=== PATIENT | male | born 1940 | race Caucasian/White ===

== ENCOUNTER 2017-03-06 14:33 | Emergency (ER) | payer MEDICARE, OTHER ==
[2017-03-06] MEDS ORDERED: SODIUM CHLORIDE 0.9% 1,000 ML IV STA ×2 (14:47→16:06)
--- NOTE | 2017-03-06 14:49 | ED ---
General Adult HPI - General Chief complaint: Fall Stated complaint: Syncope Time Seen by Provider: 03/06/17 14:47 Source: EMS, RN notes reviewed, old records reviewed Mode of arrival: EMS Limitations: no limitations - History of Present Illness Initial comments: This is a 69-year-old male to the ER for evaluation today. This patient comes in for evaluation regarding syncopal event. Patient has significant medical history of heart disease, multiple surgeries. Patient states he was at religious today came home had a bowel movement then became very sweaty lightheaded dizzy or dizzy or pass out. She did had a witnessed pass out and collapsed, he did hit his head. Patient states he became very diaphoretic. Denies headache chest pain shortness of breath or abdominal pain. No nausea vomiting or diarrhea as of recent. No fevers. Patient this time denies any complaints - Related Data Home Medications Medication Instructions Recorded Confirmed Acetaminophen/Diphenhydramine 2 tab PO HS 01/27/15 03/06/17 [Tylenol PM 500-25mg] Aspirin 325 mg PO DAILY 01/27/15 03/06/17 Docusate [Colace] 200 mg PO BID 01/27/15 03/06/17 Insulin Aspart [NovoLOG Flexpen] 4 units SQ TID-W/MEALS 01/27/15 03/06/17 Lansoprazole [Prevacid] 30 mg PO BID 01/27/15 03/06/17 Insulin Aspart [NovoLOG Flexpen] See Protocol SQ AC-TID 02/08/17 03/06/17 amLODIPine [Norvasc] 2.5 mg PO DAILY 02/08/17 03/06/17 Atorvastatin [Lipitor] 40 mg PO DAILY 03/06/17 03/06/17 Insulin Glargine,Hum.rec.anlog 25 unit SQ HS 03/06/17 03/06/17 [Lantus Solostar] Lisinopril [Prinivil] 5 mg PO DAILY 03/06/17 03/06/17 predniSONE 5 mg PO DAILY 03/06/17 03/06/17 Previous Rx's Medication Instructions Recorded Ciprofloxacin HCl [Cipro] 500 mg PO Q12HR #20 tablet 03/06/17 Allergies Allergy/AdvReac Type Severity Reaction Status Date / Time clopidogrel bisulfate Allergy Severe headache Verified 03/06/17 15:21 [From Plavix] absorbant pads Allergy Rash/Hives Uncoded 02/08/17 09:48 Review of Systems ROS Statement: Those systems with pertinent positive or pertinent negative responses have been documented in the HPI. ROS Other: All systems not noted in ROS Statement are negative. 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 Last Myocardial Infarction Date:: 1998 History of Any Multi-Drug Resistant Organisms: MRSA Date of last positivie culture/infection: >1 year(not sure where dx or exact date) MDRO Source:: urine/blood Past Surgical History: Appendectomy, Coronary Bypass/CABG, Heart Catheterization , Hernia Repair, Orthopedic Surgery, Prostate Surgery Additional Past Surgical History / Comment(s): 4 vessel CABG 1999, surgery for varicose veins left leg, cystectomy-urostomy, romulo cataracts with lens implants, rhinoplasty, rt knee arthrscopies, rt shoulder rotator cuff, mult nephrostomy tubes, colonoscopy with benign polypectomy Past Anesthesia/Blood Transfusion Reactions: No Reported Reaction Past Psychological History: Anxiety Smoking Status: Former smoker Past Alcohol Use History: None Reported Past Drug Use History: None Reported - Past Family History Mother Family Medical History: Myocardial Infarction (SD) Additional Family Medical History / Comment(s): Mother of a SD at the age of 86yrs. Father Family Medical History: Cancer Additional Family Medical History / Comment(s): Father had lung cancer and . He was a smoker. Sister(s) Family Medical History: Cancer General Exam Limitations: no limitations Course Vital Signs 03/06/17 03/06/17 03/06/17 14:34 16:15 18:03 Temperature 96.9 F L Pulse Rate 76 70 85 Respiratory 16 16 16 Rate Blood Pressure 131/70 138/70 121/67 O2 Sat by Pulse 97 98 97 Oximetry 03/06/17 19:50 Temperature 98.2 F Pulse Rate 78 Respiratory 18 Rate Blood Pressure 128/75 O2 Sat by Pulse 98 Oximetry - Reevaluation(s) Reevaluation #1: Patient has no recurrent chest pain headache shortness of breath or abdominal pain here in the emergency room EKG Findings - EKG Comments: EKG Findings:: EKG shows sinus rhythm rate of 77, FL 138, QRS 112, QTC 482 Medical Decision Making - Medical Decision Making 69 male the ER. Pharynx syncopal event mild dehydration positive UTI. No significant cause found for patient syncopal or near syncopal event. Patient states he feels fine at this time with no headache chest pain shortness of breath, patient can be discharged home - Lab Data Result diagrams: 03/06/17 14:45 03/06/17 14:45 Lab Results 03/06/17 03/06/17 03/06/17 Range/Units 14:45 14:45 14:45 WBC 6.7 (3.8-10.6) k/uL RBC 5.00 (4.30-5.90) m/uL Hgb 14.8 (13.0-17.5) gm/dL Hct 47.0 (39.0-53.0) % MCV 94.0 (80.0-100.0) fL MCH 29.6 (25.0-35.0) pg MCHC 31.5 (31.0-37.0) g/dL RDW 14.5 (11.5-15.5) % Plt Count 229 (150-450) k/uL Neutrophils % 77 % Lymphocytes % 14 % Monocytes % 6 % Eosinophils % 2 % Basophils % 0 % Neutrophils # 5.2 (1.3-7.7) k/uL Lymphocytes # 0.9 L (1.0-4.8) k/uL Monocytes # 0.4 (0-1.0) k/uL Eosinophils # 0.1 (0-0.7) k/uL Basophils # 0.0 (0-0.2) k/uL PT (9.0-12.0) sec INR (<1.2) APTT (22.0-30.0) sec D-Dimer (<0.60) mg/L FEU Sodium 141 (137-145) mmol/L Potassium 4.6 (3.5-5.1) mmol/L Chloride 105 (98-107) mmol/L Carbon Dioxide 25 (22-30) mmol/L Anion Gap 11 mmol/L BUN 18 (9-20) mg/dL Creatinine 1.20 (0.66-1.25) mg/dL Est GFR (MDRD) Af Amer >60 (>60 ml/min/1.73 sqM) Est GFR (MDRD) Non-Af 59 (>60 ml/min/1.73 sqM) Glucose 122 H (74-99) mg/dL Plasma Lactic Acid Lang (0.7-2.0) mmol/L Calcium 9.4 (8.4-10.2) mg/dL Phosphorus 3.9 (2.5-4.5) mg/dL Magnesium 1.4 L (1.6-2.3) mg/dL Total Bilirubin 0.5 (0.2-1.3) mg/dL AST 23 (17-59) U/L ALT 27 (21-72) U/L Alkaline Phosphatase 76 (38-126) U/L Total Creatine Kinase 95 (55-170) U/L CK-MB (CK-2) 1.1 (0.0-2.4) ng/mL CK-MB (CK-2) Rel Index 1.2 Troponin I <0.012 (0.000-0.034) ng/mL Total Protein 6.7 (6.3-8.2) g/dL Albumin 3.6 (3.5-5.0) g/dL Urine Color Urine Appearance (Clear) Urine pH (5.0-8.0) Ur Specific [place] (1.001-1.035) Urine Protein (Negative) Urine Glucose (UA) (Negative) Urine Ketones (Negative) Urine Blood (Negative) Urine Nitrite (Negative) Urine Bilirubin (Negative) Urine Urobilinogen (<2.0) mg/dL Ur Leukocyte Esterase (Negative) Urine RBC (0-5) /hpf Urine WBC (0-5) /hpf Urine WBC Clumps (None) /hpf Ur Squamous Epith Cells (0-4) /hpf Urine Bacteria (None) /hpf Hyaline Casts (0-2) /lpf Urine Mucus (None) /hpf 03/06/17 03/06/17 03/06/17 Range/Units 14:45 14:45 15:05 WBC (3.8-10.6) k/uL RBC (4.30-5.90) m/uL Hgb (13.0-17.5) gm/dL Hct (39.0-53.0) % MCV (80.0-100.0) fL MCH (25.0-35.0) pg MCHC (31.0-37.0) g/dL RDW (11.5-15.5) % Plt Count (150-450) k/uL Neutrophils % % Lymphocytes % % Monocytes % % Eosinophils % % Basophils % % Neutrophils # (1.3-7.7) k/uL Lymphocytes # (1.0-4.8) k/uL Monocytes # (0-1.0) k/uL Eosinophils # (0-0.7) k/uL Basophils # (0-0.2) k/uL PT 11.6 (9.0-12.0) sec INR 1.2 H (<1.2) APTT 22.0 (22.0-30.0) sec D-Dimer 7.60 H (<0.60) mg/L FEU Sodium (137-145) mmol/L Potassium (3.5-5.1) mmol/L Chloride (98-107) mmol/L Carbon Dioxide (22-30) mmol/L Anion Gap mmol/L BUN (9-20) mg/dL Creatinine (0.66-1.25) mg/dL Est GFR (MDRD) Af Amer (>60 ml/min/1.73 sqM) Est GFR (MDRD) Non-Af (>60 ml/min/1.73 sqM) Glucose (74-99) mg/dL Plasma Lactic Acid Lang 1.0 (0.7-2.0) mmol/L Calcium (8.4-10.2) mg/dL Phosphorus (2.5-4.5) mg/dL Magnesium (1.6-2.3) mg/dL Total Bilirubin (0.2-1.3) mg/dL AST (17-59) U/L ALT (21-72) U/L Alkaline Phosphatase (38-126) U/L Total Creatine Kinase (55-170) U/L CK-MB (CK-2) (0.0-2.4) ng/mL CK-MB (CK-2) Rel Index Troponin I (0.000-0.034) ng/mL Total Protein (6.3-8.2) g/dL Albumin (3.5-5.0) g/dL Urine Color Yellow Urine Appearance Turbid (Clear) Urine pH 6.0 (5.0-8.0) Ur Specific [place] 1.013 (1.001-1.035) Urine Protein 2+ H (Negative) Urine Glucose (UA) Negative (Negative) Urine Ketones Negative (Negative) Urine Blood Small H (Negative) Urine Nitrite Negative (Negative) Urine Bilirubin Negative (Negative) Urine Urobilinogen <2.0 (<2.0) mg/dL Ur Leukocyte Esterase Large H (Negative) Urine RBC 4 (0-5) /hpf Urine WBC >182 H (0-5) /hpf Urine WBC Clumps Many H (None) /hpf Ur Squamous Epith Cells 1 (0-4) /hpf Urine Bacteria Few H (None) /hpf Hyaline Casts 25 H (0-2) /lpf Urine Mucus Rare H (None) /hpf - Radiology Data Radiology results: report reviewed (CT brain C-spine, CT chest negative for acute disease), image reviewed Disposition Clinical Impression: Syncope, UTI (urinary tract infection) Disposition: HOME SELF-CARE Condition: Good Instructions: Urinary Tract Infection in Men (ED), Syncope (ED) Prescriptions: Ciprofloxacin HCl [Cipro] 500 mg PO Q12HR #20 tablet Referrals: Miguel Vazquez MD [Primary Care Provider] - 1-2 days
[2017-03-06 15:04] LABS: Basophils % (A) 0 %; Eosinophils # (A) 0.1 k/uL (0-0.7); Eosinophils % (A) 2 %; HGB 14.8 gm/dL (13.0-17.5); Lymphocytes # (A) 0.9 k/uL (1.0-4.8); Lymphocytes % (A) 14 %; MCH 29.6 pg (25.0-35.0); MCHC 31.5 g/dL (31.0-37.0); Mean Platelet Volume 7.2; Monocytes # (A) 0.4 k/uL (0-1.0); Monocytes % (A) 6 %; Neutrophils # (A) 5.2 k/uL (1.3-7.7); Neutrophils % (A) 77 %; Platelet Count 229 k/uL (150-450); RDW 14.5 % (11.5-15.5); WBC 6.7 k/uL (3.8-10.6)
[2017-03-06 15:14] LABS: ALT 27 U/L (21-72); AST 23 U/L (17-59); Albumin 3.6 g/dL (3.5-5.0); Alkaline Phosphatase 76 U/L (38-126); Anion Gap 11 mmol/L; Blood Urea Nitrogen 18 mg/dL (9-20); Calcium 9.4 mg/dL (8.4-10.2); Carbon Dioxide 25 mmol/L (22-30); Chloride 105 mmol/L (98-107); Glucose 122 mg/dL (74-99); Magnesium 1.4 mg/dL (1.6-2.3); Phosphorus 3.9 mg/dL (2.5-4.5); Potassium 4.6 mmol/L (3.5-5.1); Sodium 141 mmol/L (137-145); Total Bilirubin 0.5 mg/dL (0.2-1.3); Total Protein 6.7 g/dL (6.3-8.2)
[2017-03-06 15:31] LABS: Creatine Kinase 95 U/L (55-170)
[2017-03-06 15:35] LABS: Appearance,Urine Turbid (Clear); Bacteria,Urine Few /hpf; Bilirubin,Urine Negative (Negative); Blood,Urine Small (Negative); Color,Urine Yellow; Glucose,Urine (UA) Negative (Negative); Hyaline Casts,Urine 25 /lpf (0-2); Ketones,Urine Negative (Negative); Leukocyte Esterase,Urine Large (Negative); Mucus,Urine Rare /hpf; Nitrite,Urine Negative (Negative); Protein,Urine 2+ (Negative); RBC,Urine 4 /hpf (0-5); Specific Gravity,Urine 1.013 (1.001-1.035); Squamous Epithelial Cell,Urine 1 /hpf (0-4); Urobilinogen,Urine <2.0 mg/dL (<2.0); WBC,Urine >182 /hpf (0-5)
[2017-03-06 15:43] LABS: Creatine Kinase MB 1.1 ng/mL (0.0-2.4); Troponin I <0.012 ng/mL (0.000-0.034)
[2017-03-06 15:57] LABS: D-Dimer 7.6 mg/L FEU (<0.60); INR 1.2 (<1.2); Prothrombin Time 11.6 sec (9.0-12.0)
--- NOTE | 2017-03-06 15:57 | CT ---
EXAMINATION TYPE: CT brain cspine wo con DATE OF EXAM: 03/06/2017 COMPARISON: NONE HISTORY: Head and neck pain CT DLP: 1860 mGycm Automated exposure control for dose reduction was used. TECHNIQUE: CT scan of the head and cervical spine are performed without contrast. FINDINGS: There is no acute intracranial hemorrhage, mass effect, or midline shift identified. The ventricles and sulci are within normal limits in size. The globes are intact and the visualized sin uses are clear. Cervical spine is visualized in its entirety from C1 through upper thoracic levels and demonstrates s atisfactory alignment without evidence of acute fracture or dislocation. Prevertebral soft tissue ap pears within normal limits. There are chronic white matter ischemic changes and mild cortical atrophy . Mild to moderate degenerative changes are identified in the cervical spine with multiple levels dem onstrating endplate spurring which effaces the ventral thecal sac. There is also left greater than ri ght facet hypertrophy which causes mild foraminal narrowing at several levels. The C1-C2 articulation is unremarkable. There is an opacity in the right lung apex which is incompletely visualized on background of diffuse emphysema. No comparison is identified which better evaluates this focus. IMPRESSION: 1. There is no acute fracture or dislocation evident in the cervical spine. 2. No acute intracranial hemorrhage, mass effect, or midline shift is seen. 3. Opacity is identified in the posterior right lung apex which is not completely visualized. Dedicat ed noncontrast chest CT is recommended.
[2017-03-06] MEDS ORDERED: RX INFO: IV CONTRAST WAS GIVEN 1 EACH MISC MISCELLANE PRN (16:06)
[2017-03-06] MEDS ORDERED: AMPICILLIN-SULBACTAM 3 GM in SODIUM CHLORIDE 0.9% 100 ML IVPB STA (16:15)
[2017-03-06] MEDS ORDERED: MAGNESIUM OXIDE 400 MG TAB PO STA (16:31)
--- NOTE | 2017-03-06 16:51 | CT ---
EXAMINATION TYPE: CT angio chest DATE OF EXAM: 03/06/2017 4:37 PM COMPARISON: NONE HISTORY: Syncope. CT DLP: 435.5 mGycm Automated exposure control for dose reduction was used. CONTRAST: CTA scan of the thorax is performed with IV Contrast, patient injected with 80 mL of Visipaque 320, p ulmonary embolism protocol. . FINDINGS: Diffuse emphysematous changes are noted throughout all lung [place]. There are large bulla noted at gene th lung bases as well as the right lung apices. There is a well organized heterogeneous opacification identified in the right upper lobe which measures 2.7 x 0.1 x 2.4 cm. Additional suspicious smaller lesions are identified more inferiorly however these abut the pleura and could be foci of atelectasis . Fluid is there is also a nodule identified in the periphery of the lingula this is best seen on axi al image 9175. This focus measures 4.0 x 5.9 cm. No filling defect is identified which would suggest a pulmonary embolism. There is no enlarged paratr acheal lymph node identified on axial image 35 on 75 measures 2.9 x 1.7 cm. Several other smaller med iastinal lymph nodes are also identified. There is no endobronchial lesion. The central airways appear patent. No osteolytic or osteoblastic le sions are seen. IMPRESSION: 1. No findings to suggest a pulmonary embolism. 2. Multiple opacities/masses are identified bilaterally on a background of diffuse emphysema. Neoplas m is suspected however atelectasis is difficult to fully exclude especially given the peripheral loca tion of these foci. Recommend comparison with prior outside studies. A PET scan may be of benefit if warranted.
--- NOTE | 2017-03-06 17:13 | US ---
EXAMINATION TYPE: US venous doppler duplex LE DATE OF EXAM: 03/06/2017 4:57 PM COMPARISON: NONE CLINICAL HISTORY: Pain. EC patient with elevated D Dimer; in for syncope; left Saphenous Veins stripp ed per patient SIDE PERFORMED: Bilateral TECHNIQUE: The lower extremity deep venous system is examined utilizing real time linear array sonog [place] with graded compression, doppler sonography and color-flow sonography. VESSELS IMAGED: Common Femoral Vein Deep Femoral Vein Greater Saphenous Vein * Femoral Vein Popliteal Vein Small Saphenous Vein * Proximal Calf Veins (* superficial vessels) Right Leg: Wall echoes are noted at upper Femoral Vein and Deep Femoral Vein Valves, but color flow patency is documented. Rt leg is otherwise negative for DVT. Left Leg: Negative for DVT. Lymph node is noted left groin = 1.7 x 0.9 x 0.6cm IMPRESSION: Hyperechoic foci are noted in the valves of the femoral vein on the right-these are felt to be thrombi. These are nonobstructing and questionably flow limiting.
[2017-03-06] MEDS: MAGNESIUM SULFATE-D5W PMX 1 GM in DEXTROSE/WATER 1 100ML.BAG IVPB SCH ×2 (17:48→18:41)
[2017-03-06 19:52] VITALS: BP 128/75; PULSE 78; RESP 18; TEMP 98.2
== END 2017-03-06 19:49 | disposition home or self-care (01) ==
LOC: EC 14:33
DX: R55 Syncope and collapse (principal); N39.0 Urinary tract infection, site not specified; R42 Dizziness and giddiness; I25.119 Atherosclerotic heart disease of native coronary artery with unspecified angina pectoris; E11.9 Type 2 diabetes mellitus without complications; K21.9 Gastro-esophageal reflux disease without esophagitis; I25.2 Old myocardial infarction; M19.90 Unspecified osteoarthritis, unspecified site; F41.9 Anxiety disorder, unspecified; Z86.14 Personal history of Methicillin resistant Staphylococcus aureus infection; Z85.51 Personal history of malignant neoplasm of bladder; Z87.891 Personal history of nicotine dependence; Z79.4 Long term (current) use of insulin; Z79.82 Long term (current) use of aspirin; Z79.52 Long term (current) use of systemic steroids; Z79.899 Other long term (current) drug therapy; Z91.048 Other nonmedicinal substance allergy status; Z88.8 Allergy status to other drugs, medicaments and biological substances
CPT/HCPCS: 96375; 96361 ×2; 96365 ×2; 99285 ×2; 96367; 36415; 93005; 85379; 80053; 82550; 82553; 83605; 83735; 84100; 84484; 85025; 85610; 85730; 81001; 87086; 87077; 87186; 93970; 72125; 70450; 71275; Q9967; J3475; J0295

== ENCOUNTER 2017-10-26 08:41 | Day surgery (SDC) | payer MEDICARE, OTHER ==
[2017-10-26 09:33] VITALS: BP 101/59; PULSE 86; RESP 18; TEMP 97.7
[2017-10-26 09:33] LABS: INR 1.2 (<1.2); Prothrombin Time 11.6 sec (9.0-12.0)
[2017-10-26 09:36] LABS: Mean Platelet Volume 7.8; Platelet Count 254 k/uL (150-450)
--- NOTE | 2017-10-26 10:34 | CT ---
EXAMINATION TYPE: CT discontinued procedure DATE OF EXAM: 10/26/2017 COMPARISON: Nuclear medicine PET/CT 10/09/2017 HISTORY: Discontinued lung biopsy. CT DLP: 306 mGycm Automated exposure control for dose reduction was used. Limited helical scanning performed from the c hest. FINDINGS: Following discussion of risks and benefits of the procedure, the patient elected to defer biopsy. IMPRESSION: PATIENT HAS ELECTED TO DEFER BIOPSY THIS TIME.
== END 2017-10-26 10:25 | disposition home or self-care (01) ==
LOC: RADPROMAIN 08:41
PROVIDERS: ATTEND Thoracic Surgery (Cardiothoracic Vascular Surgery)
DX: Z53.9 Procedure and treatment not carried out, unspecified reason (principal); R91.8 Other nonspecific abnormal finding of lung field; Z88.8 Allergy status to other drugs, medicaments and biological substances
CPT/HCPCS: 36415; 76380; 82947; 85049; 85610

== ENCOUNTER 2017-11-10 05:35 | Day surgery (SDC) | payer MEDICARE, OTHER ==
[2017-11-07 10:06] VITALS: BMI 30.4
[~2017-11-10 05:35] MED LIST: ceFAZolin IN SWFI 2 GM/20 ML SYRINGE IVP ONE
[2017-11-10] MEDS ORDERED: ONDANSETRON 4 MG/2 ML VIAL IVP ONE (05:48)
[2017-11-10] MEDS ORDERED: DEXAMETHASONE SOD PHOSPHATE 10 MG/ML 1 ML VIAL IV ONE (05:48)
[2017-11-10] MEDS ORDERED: LACTATED RINGERS 1,000 ML IV SCH (05:48)
[2017-11-10] MEDS ORDERED: LIDOCAINE 1% 20 ML VIAL (10MG/ML) FOR IV START INTRADERMA ONE (06:23)
[2017-11-10 06:53] LABS: Glucose,Whole Blood 130 mg/dL (75-99)
[2017-11-10 06:58] LABS: INR 1.3 (<1.2); Prothrombin Time 12.4 sec (9.0-12.0)
[2017-11-10 07:12] LABS: Potassium 4.7 mmol/L (3.5-5.1)
[2017-11-10] MEDS ORDERED: MIDAZOLAM 2 MG/2 ML VIAL ONE (07:34)
[2017-11-10] MEDS ORDERED: LIDOCAINE 1% INJ 10MG/ML (20 ML MDV) ONE (07:34)
[2017-11-10] MEDS ORDERED: PROPOFOL 10 MG/ML 20 ML VIAL IV ONE (07:34)
[2017-11-10] MEDS ORDERED: SUCCINYLCHOLINE CHLORIDE VIAL 200 MG/10 ML VIAL IV ONE (07:34)
[2017-11-10] MEDS ORDERED: fentaNYL (PF) 50 MCG/ML 2 ML AMP ONE (07:34)
[2017-11-10] MEDS ORDERED: PHENYLEPHRINE-0.9% NACL SYG 1 MG/10 ML SYRINGE ONE (07:34)
[2017-11-10] MEDS: HYDROmorphone 0.5 MG/0.5 ML SYRINGE IVP PRN ×2 (09:10→09:15)
[2017-11-10] MEDS ORDERED: HYDROcodone/APAP 5-325MG 1 EACH TAB PO PRN ×2 (09:13)
--- NOTE | 2017-11-10 09:15 | P.OP ---
Date of Procedure: 11/10/17 Preoperative Diagnosis: Metastatic carcinoma, unknown primary Postoperative Diagnosis: Same Procedure(s) Performed: Mediastinum anoscopy with lymph node biopsy Anesthesia: EDAA Surgeon: Mert Ignacio Estimated Blood Loss (ml): 3 IV fluids (ml): 800 Urine output (ml): 270 Pathology: other (Biopsy of right paratracheal lymph node sent for frozen section and permanent section) Condition: stable Disposition: PACU Indications for Procedure: 77-year-old male with history of aggressive bladder cancer status post nephrectomy with ileal conduit. Presents at this time with shoulder pain and is noted to have multiple pulmonary masses, mediastinal adenopathy, evidence of only metastasis including metastasis to the scapula. He also has evidence of adrenal metastasis and possible liver metastasis. All of this to his demonstrated on both CT and PET scanning. Patient was referred for needle biopsy for tissue diagnosis as well as for radiation and medical oncology. Unfortunately a needle biopsy was not performed. The rib patient re-presented to my office. It was decided to proceed with mediastinoscopy to obtain tissue diagnosis. Operative Findings: There was an area of enlarged right paratracheal lymph nodes between the sondra and the innominate artery. 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 Description of Procedure: Patient was brought to the operating room, placed supine on the operating table , anesthetized and intubated. Table was turned and the patient appropriately positioned for mediastinoscopy. The anterior neck and chest were sterilely prepped and draped. Transverse incision was made at the base of the neck across the midline for a distance of about 1 cm. This was carried down through skin and subcutaneous tissue to the strap muscles. A small vein was ligated with 3-0 silk. Dissection was carried between the strap muscles to the pretracheal plane beneath the thyroid isthmus. The pretracheal plane was developed into the mediastinum using gentle blunt finger dissection. Mediastinoscope was introduced and the dissection carried down to the level of the sondra. The right paratracheal region was dissected and enlarged soft lymph nodes were encountered. Multiple biopsies were obtained. A portion was sent for frozen section. The remainder was sent for permanent section once we assured the diagnosis of malignancy on frozen section. The area was packed in good hemostasis was verified. Strap muscles were reapproximated with interrupted [id number] of 3-0 Vicryl. The subcutaneous tissue was closed with running 3-0 Vicryl. Subcuticular layer was closed with running 3-0 Vicryl. Skin was dressed with skin glue. The patient was awakened and transferred to recovery room in stable condition.
[2017-11-10 09:18] VITALS: RESP 16; TEMP 97.1
[2017-11-10 10:47] VITALS: BP 121/82; PULSE 95
== END 2017-11-10 11:13 | disposition home or self-care (01) ==
LOC: OR 05:35
PROVIDERS: ATTEND Thoracic Surgery (Cardiothoracic Vascular Surgery)
DX: C77.1 Secondary and unspecified malignant neoplasm of intrathoracic lymph nodes (principal); I25.10 Atherosclerotic heart disease of native coronary artery without angina pectoris; I10 Essential (primary) hypertension; Z87.891 Personal history of nicotine dependence; Z95.1 Presence of aortocoronary bypass graft; Z85.51 Personal history of malignant neoplasm of bladder; Z80.1 Family history of malignant neoplasm of trachea, bronchus and lung; Z86.73 Personal history of transient ischemic attack (TIA), and cerebral infarction without residual deficits; E78.5 Hyperlipidemia, unspecified; F41.9 Anxiety disorder, unspecified; K21.9 Gastro-esophageal reflux disease without esophagitis; Z79.4 Long term (current) use of insulin; Z79.891 Long term (current) use of opiate analgesic; Z79.899 Other long term (current) drug therapy; Z88.8 Allergy status to other drugs, medicaments and biological substances
CPT/HCPCS: 80051; 85610; 88305; 88331

== ENCOUNTER 2017-12-19 11:44 | Emergency (ER) | payer MEDICARE, OTHER ==
[2017-12-19 12:09] VITALS: RESP 18
[2017-12-19] MEDS ORDERED: SODIUM CHLORIDE 0.9% 1,000 ML IV STA (12:33)
--- NOTE | 2017-12-19 12:43 | ED ---
General Adult HPI - General Chief complaint: Abdominal Pain Stated complaint: Abd.pain/constipation Time Seen by Provider: 12/19/17 12:15 Source: patient, RN notes reviewed Mode of arrival: wheelchair Limitations: no limitations - History of Present Illness Initial comments: Patient 77-year-old male presented to the emergency room today with chief complaint abdominal pain over the last 3 or 4 days per patient does admit that over the weekend he was having symptoms of nausea vomiting. States has not had a bowel movement appears worried that he is constipated. He does admit that he has cancer and is currently being treated with radiation treatments. Patient states he was given radiation treatment today with a possible to emergency room visit an elevated heart rate. She does not have a bowel movement over the last 3 days. Patient states that has passed gas. Patient is to cramping type abdominal pain that comes and goes in the lower parts of the abdomen. Patient does admit that he is currently on antibiotic for a urinary tract infection. He does admit that he had a history of bladder cancer had bladder removed and does have a urinary bag. Patient denies any other complaints or symptoms currently. Patient denies any recent fever, chills, back pain, numbness or tingling, headaches or visual changes, or any other complaints. - Related Data Home Medications Medication Instructions Recorded Confirmed Acetaminophen/Diphenhydramine 2 tab PO HS 01/27/15 12/19/17 [Tylenol PM 500-25mg] Aspirin 325 mg PO DAILY 01/27/15 12/19/17 Docusate [Colace] 200 mg PO BID 01/27/15 12/19/17 Insulin Aspart [NovoLOG Flexpen] 4 units SQ TID-W/MEALS 01/27/15 12/19/17 Lansoprazole [Prevacid] 30 mg PO BID 01/27/15 12/19/17 amLODIPine [Norvasc] 2.5 mg PO DAILY 02/08/17 12/19/17 Atorvastatin [Lipitor] 40 mg PO HS 03/06/17 12/19/17 Insulin Glargine,Hum.rec.anlog 25 unit SQ HS 03/06/17 12/19/17 [Lantus Solostar] Lisinopril [Prinivil] 5 mg PO DAILY 03/06/17 12/19/17 ALPRAZolam [Xanax] 1 - 2 mg PO BID PRN 10/14/17 12/19/17 Polyethylene Glycol 3350 [Miralax] 17 gm PO DAILY 10/14/17 12/19/17 Megestrol Acetate 40 mg PO DAILY 11/07/17 12/19/17 Cephalexin [Keflex] 500 mg PO TID 12/19/17 12/19/17 HYDROcodone/APAP 10-325MG [[place] 1 tab PO Q6H PRN 12/19/17 12/19/17 10-325] Insulin Aspart [NovoLOG See Protocol SQ AC-TID PRN 12/19/17 12/19/17 (formulary)] Ondansetron [Zofran ODT] 8 mg PO Q4H PRN 12/19/17 12/19/17 Previous Rx's Medication Instructions Recorded Ciprofloxacin HCl [Cipro] 500 mg PO Q12HR #20 day 12/19/17 metroNIDAZOLE [Flagyl] 500 mg PO TID #30 tab 12/19/17 Allergies Allergy/AdvReac Type Severity Reaction Status Date / Time clopidogrel bisulfate Allergy Severe headache Verified 12/19/17 12:47 [From Plavix] absorbant pads Allergy Rash/Hives Uncoded 12/19/17 12:09 Review of Systems ROS Statement: Those systems with pertinent positive or pertinent negative responses have been documented in the HPI. ROS Other: All systems not noted in ROS Statement are negative. 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 , IDDM type II, bladder cancer with cystectomy/urostomy, arthritis mainly in knees and back, hiatal hernia, occ hives from environmental allergies, bladder cancer, c-diff 2012, diverticulitis, occasional shortness of breath,recent dx lung cancer Last Myocardial Infarction Date:: 1998 History of Any Multi-Drug Resistant Organisms: C-DIFF, MRSA Date of last positivie culture/infection: >1 year(not sure where dx or exact date) MDRO Source:: urine/blood Past Surgical History: Appendectomy, Coronary Bypass/CABG, Heart Catheterization , Hernia Repair, Orthopedic Surgery, Prostate Surgery Additional Past Surgical History / Comment(s): 4 vessel CABG 1999, surgery for varicose veins left leg, cystectomy-urostomy, romulo cataracts with lens implants, rhinoplasty, rt knee arthroscopies, rt shoulder rotator cuff, mult nephrostomy tubes, colonoscopy with benign polypectomy Past Anesthesia/Blood Transfusion Reactions: No Reported Reaction Past Psychological History: Anxiety Smoking Status: Former smoker - Past Family History Mother Family Medical History: Myocardial Infarction ([place]) Additional Family Medical History / Comment(s): Mother of a [place] at the age of 86yrs. Father Family Medical History: Cancer Additional Family Medical History / Comment(s): Father had lung cancer and . He was a smoker. Sister(s) Family Medical History: Cancer General Exam - General Exam Comments Initial Comments: General: The patient is awake and alert, in no distress, and does not appear acutely ill. Eye: There is normal conjunctiva bilaterally. No signs of icterus. Ears, nose, mouth and throat: There are moist mucous membranes and no oral lesions. Neck: The neck is supple, there is no tenderness or JVD. Cardiovascular: There is a regular rate and rhythm. No murmur, rub or gallop is appreciated. Respiratory: Lungs are clear to auscultation, respirations are non-labored, breath sounds are equal. No wheezes, stridor, rales, or rhonchi. Gastrointestinal: Soft on palpation. Patient is a lower quadrant. No rebound, guarding or CVA tenderness. Musculoskeletal: Normal ROM, no tenderness. Sensation intact. Strength 5/5. Pulses equal bilaterally 2+. Neurological: A&O x 3. CN II-XII intact, There are no obvious motor or sensory deficits. Coordination appears grossly intact. Speech is normal. Skin: Skin is warm and dry and no rashes or lesions are noted. Psychiatric: Cooperative, appropriate mood & affect, normal judgment. Limitations: no limitations Course Vital Signs 12/19/17 12/19/17 12:06 14:24 Temperature 97.9 F 97.6 F Pulse Rate 116 H 108 H Respiratory 18 18 Rate Blood Pressure 120/77 132/85 O2 Sat by Pulse 95 97 Oximetry EKG Findings - EKG Comments: EKG Findings:: EKG performed at 1416: Shows sinus tachycardia 5 bpm. [place] interval is 130. QRS 108 QT/QTC 352/465. No acute ST changes. Medical Decision Making - Medical Decision Making Case discussed in detail with attending physician . Patient reexamined at this time shows no signs of distress resting comfortably. Labs been reviewed. EKG shows sinus tachycardia 105 bpm. No other acute abnormalities. Results were discussed with patient. CT the abdomen and pelvis Shows 1. Correlate for mild sigmoid diverticulosis. 2. Mild hydronephrosis stable since prior study. 3 patient's a pulmonary nodule pleural effusions. 4. Left adrenal nodule. 5. Right pleural effusion. 6. Abdominal aortic aneurysm measuring 4.5 cm as read by radiologist Dr. Aparicio. Options were discussed with patient about admission to the hospital. He states he would rather go home. Patient's urine sample to show 9 white cells. Currently on Keflex. Patient does admit he states feeling much better here in the emergency room. States would rather go home. He will be treated for diverticulitis placed on ciprofloxacin along with Flagyl. He is advised follow-up with his family doctor tomorrow. He is advised return here to the emergency room for any symptoms increase or worsen. - Lab Data Result diagrams: 12/19/17 13:06 12/19/17 13:06 Lab Results 12/19/17 12/19/17 12/19/17 Range/Units 13:06 13:06 13:06 WBC 9.0 (3.8-10.6) k/uL RBC 4.97 (4.30-5.90) m/uL Hgb 15.0 (13.0-17.5) gm/dL Hct 45.4 (39.0-53.0) % MCV 91.4 (80.0-100.0) fL MCH 30.1 (25.0-35.0) pg MCHC 33.0 (31.0-37.0) g/dL RDW 13.9 (11.5-15.5) % Plt Count 274 (150-450) k/uL Neutrophils % 75 % Lymphocytes % 10 % Monocytes % 6 % Eosinophils % 7 % Basophils % 1 % Neutrophils # 6.7 (1.3-7.7) k/uL Lymphocytes # 0.9 L (1.0-4.8) k/uL Monocytes # 0.5 (0-1.0) k/uL Eosinophils # 0.7 (0-0.7) k/uL Basophils # 0.1 (0-0.2) k/uL Sodium 137 (137-145) mmol/L Potassium 5.4 H (3.5-5.1) mmol/L Chloride 107 (98-107) mmol/L Carbon Dioxide 18 L (22-30) mmol/L Anion Gap 12 mmol/L BUN 24 H (9-20) mg/dL Creatinine 1.08 (0.66-1.25) mg/dL Est GFR (CKD-EPI)AfAm 76 (>60 ml/min/1.73 sqM) Est GFR (CKD-EPI)NonAf 65 (>60 ml/min/1.73 sqM) Glucose 127 H (74-99) mg/dL Calcium 10.3 H (8.4-10.2) mg/dL Total Bilirubin 0.9 (0.2-1.3) mg/dL AST 27 (17-59) U/L ALT 17 L (21-72) U/L Alkaline Phosphatase 125 (38-126) U/L Total Creatine Kinase (55-170) U/L CK-MB (CK-2) (0.0-2.4) ng/mL CK-MB (CK-2) Rel Index Troponin I (0.000-0.034) ng/mL Total Protein 8.0 (6.3-8.2) g/dL Albumin 4.1 (3.5-5.0) g/dL Amylase 41 (30-110) U/L Lipase 26 (23-300) U/L Urine Color Yellow Urine Appearance Clear (Clear) Urine pH 6.5 (5.0-8.0) Ur Specific [place] 1.010 (1.001-1.035) Urine Protein 1+ H (Negative) Urine Glucose (UA) Negative (Negative) Urine Ketones Negative (Negative) Urine Blood Negative (Negative) Urine Nitrite Negative (Negative) Urine Bilirubin Negative (Negative) Urine Urobilinogen <2.0 (<2.0) mg/dL Ur Leukocyte Esterase Negative (Negative) Urine RBC 1 (0-5) /hpf Urine WBC 9 H (0-5) /hpf Urine Bacteria Rare H (None) /hpf 12/19/17 Range/Units 13:06 WBC (3.8-10.6) k/uL RBC (4.30-5.90) m/uL Hgb (13.0-17.5) gm/dL Hct (39.0-53.0) % MCV (80.0-100.0) fL MCH (25.0-35.0) pg MCHC (31.0-37.0) g/dL RDW (11.5-15.5) % Plt Count (150-450) k/uL Neutrophils % % Lymphocytes % % Monocytes % % Eosinophils % % Basophils % % Neutrophils # (1.3-7.7) k/uL Lymphocytes # (1.0-4.8) k/uL Monocytes # (0-1.0) k/uL Eosinophils # (0-0.7) k/uL Basophils # (0-0.2) k/uL Sodium (137-145) mmol/L Potassium (3.5-5.1) mmol/L Chloride (98-107) mmol/L Carbon Dioxide (22-30) mmol/L Anion Gap mmol/L BUN (9-20) mg/dL Creatinine (0.66-1.25) mg/dL Est GFR (CKD-EPI)AfAm (>60 ml/min/1.73 sqM) Est GFR (CKD-EPI)NonAf (>60 ml/min/1.73 sqM) Glucose (74-99) mg/dL Calcium (8.4-10.2) mg/dL Total Bilirubin (0.2-1.3) mg/dL AST (17-59) U/L ALT (21-72) U/L Alkaline Phosphatase (38-126) U/L Total Creatine Kinase 38 L (55-170) U/L CK-MB (CK-2) 0.5 (0.0-2.4) ng/mL CK-MB (CK-2) Rel Index 1.3 Troponin I <0.012 (0.000-0.034) ng/mL Total Protein (6.3-8.2) g/dL Albumin (3.5-5.0) g/dL Amylase (30-110) U/L Lipase (23-300) U/L Urine Color Urine Appearance (Clear) Urine pH (5.0-8.0) Ur Specific [place] (1.001-1.035) Urine Protein (Negative) Urine Glucose (UA) (Negative) Urine Ketones (Negative) Urine Blood (Negative) Urine Nitrite (Negative) Urine Bilirubin (Negative) Urine Urobilinogen (<2.0) mg/dL Ur Leukocyte Esterase (Negative) Urine RBC (0-5) /hpf Urine WBC (0-5) /hpf Urine Bacteria (None) /hpf Disposition Clinical Impression: Diverticulitis, UTI (urinary tract infection) Disposition: HOME SELF-CARE Condition: Good Instructions: Diverticulitis (ED) Additional Instructions: Please follow-up the family doctor tomorrow. Please use antibiotic as prescribed and return here to the emergency room if any symptoms increase or worsen Prescriptions: Ciprofloxacin HCl [Cipro] 500 mg PO Q12HR #20 day metroNIDAZOLE [Flagyl] 500 mg PO TID #30 tab Is patient prescribed a controlled substance at d/c from ED?: No Referrals: Miguel Vazquez MD [Primary Care Provider] - 1-2 days Time of Disposition: 15:07
[2017-12-19 13:15] LABS: Basophils # (A) 0.1 k/uL (0-0.2); Basophils % (A) 1 %; Eosinophils # (A) 0.7 k/uL (0-0.7); Eosinophils % (A) 7 %; HCT 45.4 % (39.0-53.0); Lymphocytes # (A) 0.9 k/uL (1.0-4.8); Lymphocytes % (A) 10 %; MCH 30.1 pg (25.0-35.0); MCV 91.4 fL (80.0-100.0); Mean Platelet Volume 6.9; Monocytes # (A) 0.5 k/uL (0-1.0); Monocytes % (A) 6 %; Neutrophils # (A) 6.7 k/uL (1.3-7.7); Neutrophils % (A) 75 %; Platelet Count 274 k/uL (150-450); RBC 4.97 m/uL (4.30-5.90); RDW 13.9 % (11.5-15.5)
[2017-12-19 13:28] LABS: Appearance,Urine Clear (Clear); Bacteria,Urine Rare /hpf; Bilirubin,Urine Negative (Negative); Blood,Urine Negative (Negative); Color,Urine Yellow; Glucose,Urine (UA) Negative (Negative); Ketones,Urine Negative (Negative); Leukocyte Esterase,Urine Negative (Negative); Nitrite,Urine Negative (Negative); PH, Urine 6.5 (5.0-8.0); Protein,Urine 1+ (Negative); RBC,Urine 1 /hpf (0-5); Urobilinogen,Urine <2.0 mg/dL (<2.0); WBC,Urine 9 /hpf (0-5)
[2017-12-19 13:40] LABS: Albumin 4.1 g/dL (3.5-5.0); Calcium 10.3 mg/dL (8.4-10.2); Potassium 5.4 mmol/L (3.5-5.1); Total Bilirubin 0.9 mg/dL (0.2-1.3)
[2017-12-19 13:41] LABS: Creatine Kinase 38 U/L (55-170)
[2017-12-19 13:53] LABS: Creatine Kinase MB 0.5 ng/mL (0.0-2.4); Troponin I <0.012 ng/mL (0.000-0.034)
--- NOTE | 2017-12-19 14:33 | CT ---
EXAMINATION TYPE: CT abdomen pelvis w con DATE OF EXAM: 12/19/2017 COMPARISON: CT abdomen pelvis 07/29/2015 HISTORY: Pain.Receiving radiation therapy for stage 4 lung cancer, both sides. CONTRAST: Contrast used 100 mL/Isovue 300. No oral. FINDINGS: LUNG BASES-: Right-sided pleural effusion measures of 4.2 cm. Multiple pulmonary nodules identified a t both lung bases. The largest the nodule at the left lung base measures 2.2 cm and at the right lung base measures 2.9 cm. Moderately severe emphysematous changes are redemonstrated. LIVER/GB: No calcified gallstones. No space occupying hepatic lesion. Biliary tree is of normal ca liber. PANCREAS: No inflammation. No distinct mass. SPLEEN: No splenic enlargement. No lesion seen. ADRENALS: Left adrenal nodule measures 1.9 cm versus 1.9 cm previously. KIDNEYS/BLADDER: There is mild bilateral hydronephrosis and hydroureter relatively similar as seen p reviously. There are postsurgical changes of cystectomy with a right lower quadrant diverting urostom y. No nephrolithiasis. No distinct renal mass. BOWEL: Mild bowel wall thickening noted proximal sigmoid colon with surrounding strandy attenuation m ay reflect mild diverticulitis. No evidence of perforation or abscess. GENITAL ORGANS: No gross abnormality. LYMPH NODES: No greater than 1cm abdominal or pelvic lymph nodes are appreciated. AORTA: Infrarenal abdominal aortic aneurysm measuring 4.5 cm AP dimension. OSSEOUS STRUCTURES: No significant abnormality is seen. OTHER: No significant additional abnormality is seen. IMPRESSION: 1. Correlate for mild sigmoid diverticulitis. 2. Mild hydronephrosis stable since prior study. 3. Basilar pulmonary nodule pleural effusions. Several of the nodules demonstrate cavitation. 4. Left adrenal nodule. 5. Right pleural effusion. 6 abdominal aortic aneurysm.
[2017-12-19 15:21] VITALS: BP 136/87; PULSE 100; TEMP 97.4
== END 2017-12-19 15:21 | disposition home or self-care (01) ==
LOC: EC 11:44
DX: K57.32 Diverticulitis of large intestine without perforation or abscess without bleeding (principal); N39.0 Urinary tract infection, site not specified; N13.30 Unspecified hydronephrosis; R91.1 Solitary pulmonary nodule; E27.8 Other specified disorders of adrenal gland; J90 Pleural effusion, not elsewhere classified; I71.4 Abdominal aortic aneurysm, without rupture; C34.90 Malignant neoplasm of unspecified part of unspecified bronchus or lung; I25.119 Atherosclerotic heart disease of native coronary artery with unspecified angina pectoris; E11.9 Type 2 diabetes mellitus without complications; K21.9 Gastro-esophageal reflux disease without esophagitis; I25.2 Old myocardial infarction; M19.90 Unspecified osteoarthritis, unspecified site; F41.9 Anxiety disorder, unspecified; Z86.73 Personal history of transient ischemic attack (TIA), and cerebral infarction without residual deficits; Z86.14 Personal history of Methicillin resistant Staphylococcus aureus infection; Z85.51 Personal history of malignant neoplasm of bladder; Z87.891 Personal history of nicotine dependence; Z79.4 Long term (current) use of insulin; Z79.899 Other long term (current) drug therapy; Z88.8 Allergy status to other drugs, medicaments and biological substances; Z95.1 Presence of aortocoronary bypass graft; Z79.82 Long term (current) use of aspirin; Z95.818 Presence of other cardiac implants and grafts; Z91.048 Other nonmedicinal substance allergy status; Z90.49 Acquired absence of other specified parts of digestive tract; Z80.1 Family history of malignant neoplasm of trachea, bronchus and lung
CPT/HCPCS: 99285; 96360; 36415; 93005; 80053; 82150; 82550; 82553; 83690; 84484; 85025; 81001; 87086; 74177; Q9967; 87077; 87186

== ENCOUNTER → 2018-01-25 | Outpatient (CLI) | payer MEDICARE, OTHER ==
--- NOTE | 2018-01-25 16:42 | CT ---
EXAMINATION TYPE: CT chest wo con DATE OF EXAM: 01/25/2018 COMPARISON: 03/06/2017 HISTORY: Lung CA CT DLP: 443.2 mGycm. Automated Exposure Control for Dose Reduction was Utilized. TECHNIQUE: CT scan of the thorax is performed without IV contrast. FINDINGS: LUNGS: The right upper lobe pulmonary mass representing the patient's known primary neoplasm has been displaced anteriorly due to an accumulating moderate right pleural effusion. Numerous new cavitary l esions have developed in the interim as well as noncavitary pulmonary masses within the right lower l obe measuring up to 6.1 x 4.0 cm. Cavitary lesions on the left are greater than 20 in number and on t he right are greater than 15 in number. There is background bullous emphysema. MEDIASTINUM: Post CABG changes the chest are noted. There is extensive right hilar adenopathy with ma tted conglomeration of lymph nodes including the pulmonary arteries given lack of contrast together m easuring up to 4.6 x 2.3 cm with adenopathy in the right paratracheal space measuring up to 1.3 cm in short axis, aorticopulmonary window measuring up tor 1.3 cm and subcarinal node measuring up to 3.5 cm in short axis.. There is been prior coronary artery bypass. No cardiomegaly or pericardial effusi on is seen. OTHER: Bilateral adrenal gland nodules are seen measuring up to 1.8 cm on the left that are not parth tible with adrenal gland adenomas and measuring up to 1.1 cm on the right. Benign calcified granuloma s seen within the hepatic parenchyma. Splenule is incidentally noted near the [place] splenic hilum. W idening nonobstructive ventral abdominal hernia is incidentally seen. There is a destructive rib lesion of the posterior margin of rib 5 on the left with lytic and expansi le component compatible with metastasis. Subacute healing fracture of the posterior margin of rib 10 is also identified. Median sternotomy wires are present. Moderate multilevel degenerative changes of the spine are seen with anterior bridging osteophytes suggesting diffuse idiopathic skeletal hyperost osis. IMPRESSION: 1. Progression of metastatic disease with interval development of numerous bilateral cavitary metasta tic pulmonary masses and nodules with the largest mass on the right measuring up to 6 cm. There is in terval worsening of mediastinal and hilar adenopathy with encasement of the right hilar vasculature a nd development of a moderate right pleural effusion. 2. Suspicion for an adrenal gland metastasis. 3. Expansile lytic metastasis of the posterior aspect of left rib 5.
== END | disposition home or self-care (01) ==
LOC: RADCTMAIN 15:33
PROVIDERS: ATTEND Radiology Radiation Oncology
DX: C78.01 Secondary malignant neoplasm of right lung (principal); C79.51 Secondary malignant neoplasm of bone; J90 Pleural effusion, not elsewhere classified; C67.1 Malignant neoplasm of dome of bladder
CPT/HCPCS: 71250

== ENCOUNTER 2018-01-27 09:02 | Inpatient (IN) | payer MEDICARE, OTHER ==
[2018-01-27 11:29] LABS: Glucose,Whole Blood 138 mg/dL (75-99)
--- NOTE | 2018-01-27 12:12 | XR ---
EXAMINATION TYPE: XR chest 2V DATE OF EXAM: 01/27/2018 COMPARISON: CT chest 01/25/2018 INDICATION: Pneumonia TECHNIQUE: Frontal and lateral views of the chest are obtained. FINDINGS: The heart size is normal. The pulmonary vasculature is normal. There are multiple peripheral densities in the mid and lower lung [place]. A pneumatocele appears to b e at the right upper lung field.. IMPRESSION: 1. Multiple bilateral lung masses. 2. Right lower lobe lung mass versus pneumonia. Follow-up studies can be performed as clinically emily cated.
[2018-01-27 12:36] LABS: Basophils # (A) 0.1 k/uL (0-0.2); Basophils % (A) 1 %; Eosinophils # (A) 0.7 k/uL (0-0.7); Eosinophils % (A) 8 %; HCT 45.5 % (39.0-53.0); HGB 14.8 gm/dL (13.0-17.5); Lymphocytes # (A) 0.8 k/uL (1.0-4.8); Lymphocytes % (A) 10 %; MCH 30.2 pg (25.0-35.0); MCHC 32.4 g/dL (31.0-37.0); MCV 93.1 fL (80.0-100.0); Mean Platelet Volume 6.9; Monocytes # (A) 0.5 k/uL (0-1.0); Monocytes % (A) 6 %; Neutrophils # (A) 5.9 k/uL (1.3-7.7); Neutrophils % (A) 74 %; Platelet Count 289 k/uL (150-450); RBC 4.89 m/uL (4.30-5.90); RDW 13.9 % (11.5-15.5)
[2018-01-27] MEDS: SODIUM CHLORIDE 0.9% 1,000 ML IV SCH (12:38)
[2018-01-27 12:51] LABS: Albumin 4.1 g/dL (3.5-5.0); Calcium 10.8 mg/dL (8.4-10.2); Magnesium 1.6 mg/dL (1.6-2.3); Phosphorus 4.1 mg/dL (2.5-4.5); Potassium 5.4 mmol/L (3.5-5.1); Total Bilirubin 0.7 mg/dL (0.2-1.3); Total Protein 7.9 g/dL (6.3-8.2)
[2018-01-27 13:36] LABS: Appearance,Urine Cloudy (Clear); Bilirubin,Urine Negative (Negative); Blood,Urine Negative (Negative); Color,Urine Yellow; Glucose,Urine (UA) Negative (Negative); Hyaline Casts,Urine 5 /lpf (0-2); Ketones,Urine Negative (Negative); Leukocyte Esterase,Urine Trace (Negative); Mucus,Urine Rare /hpf; Nitrite,Urine Negative (Negative); PH, Urine 8.5 (5.0-8.0); Protein,Urine 2+ (Negative); RBC,Urine 31 /hpf (0-5); Specific Gravity,Urine 1.013 (1.001-1.035); Squamous Epithelial Cell,Urine <1 /hpf (0-4); Triple Phosphate Crystal,Urine Many /hpf; Urobilinogen,Urine <2.0 mg/dL (<2.0)
[2018-01-27] MEDS: AZITHROMYCIN 500 MG TAB PO SCH (14:39)
[2018-01-27] MEDS: LISINOPRIL 5 MG TAB PO SCH (16:29)
[2018-01-27] MEDS: PANTOPRAZOLE 40 MG TABLET PO SCH (16:29)
[2018-01-27] MEDS: POLYETHYLENE GLYCOL 3350 17 GM POWD.PACK PO SCH (16:29)
[2018-01-27 17:25] LABS: Glucose,Whole Blood 112 mg/dL (75-99)
[2018-01-27] MEDS: amLODIPine 2.5 MG TAB PO SCH (17:55)
[2018-01-27] MEDS: ONDANSETRON ODT 8 MG TAB.RAPDIS PO PRN ×2 (17:55→21:22)
[2018-01-27] MEDS: HYDROcodone/APAP 10-325MG 1 EACH TAB PO PRN (18:00)
[2018-01-27 21:14] LABS: Glucose,Whole Blood 157 mg/dL (75-99)
[2018-01-27] MEDS: INSULIN DETEMIR 100 UNIT/ML 10 ML VIAL SQ SCH (21:21)
[2018-01-27] MEDS: ATORVASTATIN 40 MG TAB PO SCH (21:22)
[2018-01-27] MEDS: ACETAMINOPHEN TAB 500 MG TAB PO SCH (21:22)
[2018-01-27] MEDS: diphenhydrAMINE 50 MG CAP PO SCH (21:24)
[2018-01-27] MEDS: DOCUSATE 100 MG CAP PO SCH (21:24)
[2018-01-27 22:42] LABS: Hemoglobin A1C 6.9 % (4.0-6.0)
[2018-01-28] MEDS: HYDROcodone/APAP 10-325MG 1 EACH TAB PO PRN ×2 (03:44→15:35)
[2018-01-28 07:30] LABS: Glucose,Whole Blood 89 mg/dL (75-99)
[2018-01-28] MEDS: LISINOPRIL 5 MG TAB PO SCH (08:42)
[2018-01-28] MEDS: SODIUM CHLORIDE 0.9% 1,000 ML IV SCH (08:42)
[2018-01-28] MEDS: ASPIRIN 325 MG TAB PO SCH (08:42)
[2018-01-28] MEDS: DOCUSATE 100 MG CAP PO SCH ×2 (08:42→21:19)
[2018-01-28] MEDS: amLODIPine 2.5 MG TAB PO SCH (08:43)
[2018-01-28] MEDS: PANTOPRAZOLE 40 MG TABLET PO SCH ×2 (08:43→17:35)
[2018-01-28] MEDS: AZITHROMYCIN 500 MG TAB PO SCH (08:43)
[2018-01-28] MEDS: MEGESTROL 40 MG TAB PO SCH (08:43)
[2018-01-28] MEDS: POLYETHYLENE GLYCOL 3350 17 GM POWD.PACK PO SCH (08:43)
[2018-01-28 12:28] LABS: Glucose,Whole Blood 88 mg/dL (75-99)
[2018-01-28 14:31] VITALS: BMI 28.5
[2018-01-28] MEDS: ALPRAZolam 1 MG TAB PO PRN (15:35)
[2018-01-28 17:13] LABS: Glucose,Whole Blood 105 mg/dL (75-99)
[2018-01-28 20:15] LABS: Glucose,Whole Blood 151 mg/dL (75-99)
[2018-01-28] MEDS: ACETAMINOPHEN TAB 500 MG TAB PO SCH (21:18)
[2018-01-28] MEDS: ATORVASTATIN 40 MG TAB PO SCH (21:18)
[2018-01-28] MEDS: INSULIN DETEMIR 100 UNIT/ML 10 ML VIAL SQ SCH (21:19)
[2018-01-28] MEDS: diphenhydrAMINE 50 MG CAP PO SCH (21:19)
[2018-01-29] MEDS: HYDROcodone/APAP 10-325MG 1 EACH TAB PO PRN ×3 (00:57→20:29)
[2018-01-29] MEDS: SODIUM CHLORIDE 0.9% 1,000 ML IV SCH (05:41)
[2018-01-29 07:47] LABS: Basophils # (A) 0.1 k/uL (0-0.2); Basophils % (A) 1 %; Eosinophils # (A) 0.9 k/uL (0-0.7); Eosinophils % (A) 13 %; HCT 40.5 % (39.0-53.0); HGB 12.5 gm/dL (13.0-17.5); Lymphocytes # (A) 0.8 k/uL (1.0-4.8); Lymphocytes % (A) 11 %; MCH 28.7 pg (25.0-35.0); MCHC 30.9 g/dL (31.0-37.0); MCV 92.8 fL (80.0-100.0); Mean Platelet Volume 7.2; Monocytes # (A) 0.5 k/uL (0-1.0); Monocytes % (A) 6 %; Neutrophils # (A) 4.9 k/uL (1.3-7.7); Neutrophils % (A) 68 %; Platelet Count 249 k/uL (150-450); RBC 4.36 m/uL (4.30-5.90); RDW 13.7 % (11.5-15.5); WBC 7.2 k/uL (3.8-10.6)
[2018-01-29 08:06] LABS: Calcium 9.5 mg/dL (8.4-10.2); Potassium 4.7 mmol/L (3.5-5.1); Total Bilirubin 0.5 mg/dL (0.2-1.3); Total Protein 6.2 g/dL (6.3-8.2)
[2018-01-29] MEDS: PANTOPRAZOLE 40 MG TABLET PO SCH ×2 (08:24→17:37)
[2018-01-29] MEDS: AZITHROMYCIN 500 MG TAB PO SCH (08:24)
[2018-01-29] MEDS: amLODIPine 2.5 MG TAB PO SCH (08:25)
[2018-01-29] MEDS: LISINOPRIL 5 MG TAB PO SCH (08:25)
[2018-01-29] MEDS: ASPIRIN 325 MG TAB PO SCH (08:25)
[2018-01-29] MEDS: MEGESTROL 40 MG TAB PO SCH (08:25)
[2018-01-29] MEDS: POLYETHYLENE GLYCOL 3350 17 GM POWD.PACK PO SCH (08:25)
[2018-01-29] MEDS: DOCUSATE 100 MG CAP PO SCH ×2 (08:25→20:30)
--- NOTE | 2018-01-29 16:53 | P.HPIM ---
History of Present Illness H&P Date: 01/27/18 (Late entry note) Chief Complaint: Bilateral lower thoracic wall pain flank pain cough and shortness of breath 77-year-old male with recent diagnosis of metastatic stage IV lung cancer also has a history of bladder cancer patient the called and said that due to severity of pain and severe flank pain, patient was advised to be admitted into the hospital for failed outpatient therapy, patient has been on oral Levaquin, also have cough congestion or shortness of breath patient admitted into hospital broad-spectrum antibiotics also further evaluation and repeat cultures , patient has been undergoing radiation therapy from radiation oncology Review of Systems All systems: negative Past Medical History Past Medical History: Coronary Artery Disease (CAD), Cancer, Chest Pain / Angina , CVA/TIA, Diabetes Mellitus, GERD/Reflux, GI Bleed, Myocardial Infarction ([place]) , Osteoarthritis (OA), Renal Disease Additional Past Medical History / Comment(s): Recent bronchitis treated with ABX , watery diarrhea yesterday x5, 2012 aggressive bladder cancer with cystectomy/ urostomy, chronic bladder and now kidney infections, CKD stage II, recently diagnosed with bilateral lung cancer with mets-stage IV/primary unknown- currently receiving radiation palliatively for rib pain/has been told he has 4- 6 months to live, IDDM type II, bilateral feet neuropathy, 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 Last Myocardial Infarction Date:: 1998 History of Any Multi-Drug Resistant Organisms: MRSA, VRE Date of last positivie culture/infection: 12/19/17 VRE URINE >1 MRSA MDRO Source:: 2012 MRSA in urine and blood per pt. Past Surgical History: Appendectomy, Coronary Bypass/CABG, Heart Catheterization , Hernia Repair, Orthopedic Surgery, Prostate Surgery, Tonsillectomy Additional Past Surgical History / Comment(s): 11/10/17 mediastinoscopy, 4 vessel CABG 1998, surgery for varicose veins left leg, cystectomy-urostomy, prostatectomy, romulo cataracts with lens implants, rhinoplasty, rt knee arthroscopies, rt shoulder rotator cuff, mult nephrostomy tubes, colonoscopy with benign polypectomy Past Anesthesia/Blood Transfusion Reactions: No Reported Reaction Smoking Status: Former smoker - Past Family History Mother Family Medical History: Myocardial Infarction ([place]) Additional Family Medical History / Comment(s): Mother of a [place] at the age of 86yrs. Father Family Medical History: Cancer Additional Family Medical History / Comment(s): Father had lung cancer and . He was a smoker. Sister(s) Family Medical History: Cancer Medications and Allergies Home Medications Medication Instructions Recorded Confirmed Type Acetaminophen/Diphenhydramine 2 tab PO HS 01/27/15 01/27/18 History [Tylenol PM 500-25mg] Aspirin 325 mg PO DAILY 01/27/15 01/27/18 History Docusate [Colace] 200 mg PO BID 01/27/15 01/27/18 History Lansoprazole [Prevacid] 30 mg PO BID 01/27/15 01/27/18 History amLODIPine [Norvasc] 2.5 mg PO DAILY 02/08/17 01/27/18 History Atorvastatin [Lipitor] 40 mg PO HS 03/06/17 01/27/18 History Insulin Glargine,Hum.rec.anlog 25 unit SQ HS 03/06/17 01/27/18 History [Lantus Solostar] Lisinopril [Prinivil] 5 mg PO DAILY 03/06/17 01/27/18 History ALPRAZolam [Xanax] 1 - 2 mg PO BID PRN 10/14/17 01/27/18 History Polyethylene Glycol 3350 [Miralax] 17 gm PO DAILY 10/14/17 01/27/18 History Megestrol Acetate 40 mg PO DAILY 11/07/17 01/27/18 History HYDROcodone/APAP 10-325MG [[place] 1 tab PO Q6H PRN 12/19/17 01/27/18 History 10-325] Insulin Aspart [NovoLOG See Protocol SQ AC-TID PRN 12/19/17 01/27/18 History (formulary)] Ondansetron [Zofran ODT] 8 mg PO Q4H PRN 12/19/17 01/27/18 History Levofloxacin [Levaquin] 500 mg PO DAILY 01/27/18 01/27/18 History Allergies Allergy/AdvReac Type Severity Reaction Status Date / Time clopidogrel bisulfate Allergy Severe headache Verified 12/19/17 12:47 [From Plavix] absorbant pads Allergy Rash/Hives Uncoded 12/19/17 12:09 Physical Exam Vitals: Vital Signs Temp Pulse Pulse Resp BP Pulse Ox 01/29/18 12:37 98.2 F 101 H 16 122/69 95 01/29/18 04:39 98.7 F 75 16 118/67 96 01/28/18 23:34 97 99 18 01/28/18 21:00 97.3 F L 97 18 109/71 95 Intake and Output 01/29/18 01/29/18 01/29/18 06:59 14:59 22:59 Intake Total 220 450 Output Total 900 Balance 220 -450 Intake: Intake, IV Titration 450 Amount Sodium Chloride 0.9% 1, 400 000 ml @ 50 mls/hr IV . Q20H [facility] Rx#:[id number] cefTRIAXone 1,000 mg In 50 Sodium Chloride 0.9% 50 ml @ 100 mls/hr IVPB Q24HR [facility] Rx#:[id number] Oral 220 Output: Urine 900 Other: # Bowel Movements 2 - Constitutional General appearance: average body habitus, cooperative, disheveled, mild distress - EENT Eyes: anicteric sclerae, EOMI, PERRLA, poor dentition, normal appearance ENT: hard of hearing, normal oropharynx Ears: bilateral: normal - Neck Neck: normal ROM Carotids: bilateral: upstroke normal Thyroid: bilateral: normal size - Respiratory Respiratory: bilateral: diminished, rales, wheezing - Cardiovascular Heart sounds: normal: S1, S2 - Gastrointestinal General gastrointestinal: decreased bowel sounds, distended, soft - Integumentary Integumentary: decreased turgor, normal - Neurologic Neurologic: CNII-XII intact - Musculoskeletal Musculoskeletal: gait normal, generalized weakness, strength equal bilaterally - Psychiatric Psychiatric: A&O x's 3, appropriate affect, intact judgment & insight Results CBC & Chem 7: 01/29/18 06:38 01/29/18 06:38 Labs: Abnormal Lab Results - Last 24 Hours (Table) 01/28/18 01/28/18 01/29/18 Range/Units 17:08 20:13 06:38 Hgb 12.5 L (13.0-17.5) gm/dL MCHC 30.9 L (31.0-37.0) g/dL Lymphocytes # 0.8 L (1.0-4.8) k/uL Eosinophils # 0.9 H (0-0.7) k/uL Chloride (98-107) mmol/L Carbon Dioxide (22-30) mmol/L BUN (9-20) mg/dL Glucose (74-99) mg/dL POC Glucose (mg/dL) 105 H 151 H (75-99) mg/dL ALT (21-72) U/L Total Protein (6.3-8.2) g/dL Albumin (3.5-5.0) g/dL 01/29/18 Range/Units 06:38 Hgb (13.0-17.5) gm/dL MCHC (31.0-37.0) g/dL Lymphocytes # (1.0-4.8) k/uL Eosinophils # (0-0.7) k/uL Chloride 110 H (98-107) mmol/L Carbon Dioxide 21 L (22-30) mmol/L BUN 24 H (9-20) mg/dL Glucose 107 H (74-99) mg/dL POC Glucose (mg/dL) (75-99) mg/dL ALT 16 L (21-72) U/L Total Protein 6.2 L (6.3-8.2) g/dL Albumin 3.0 L (3.5-5.0) g/dL Microbiology - Last 24 Hours (Table) 01/27/18 12:20 Blood Culture - Preliminary Blood No Growth after 48 hours 01/27/18 12:08 Blood Culture - Preliminary Blood No Growth after 48 hours Thrombosis Risk Factor Assmnt - Choose All That Apply Any of the Below Risk Factors Present?: Yes Each Factor Represents 1 point: Obesity (BMI >25), Serious lung disease incl. pneumonia (< 1month) Other Risk Factors: Yes Each Risk Factor Represents 2 Points: Malignancy Each Risk Factor Represents 3 Points: Age 75 years or older Other congenital or acquired thrombophilia - If yes, enter type in comment: No Thrombosis Risk Factor Assessment Total Risk Factor Score: 7 Thrombosis Risk Factor Assessment Level: High Risk Assessment and Plan Assessment: Sepsis associated with recurrent urinary tract infection failed outpatient therapy COPD exacerbation occurred pneumonia cannot be excluded Metastatic stage IV lung cancer undergoing radiation therapy Bladder cancer Severe of recent E. coli as well as enterococcus urinary tract infection Generalized weakness pain and medical debility with a high risk of complication outpatient therapy Plan: Gentle rehydration Pain management Heart spectrum antibiotics Continue home medications Urine blood cultures Labs and chest x-ray Further recommendations pending plan of care as per clinical response of the patient If patient is agreeable and family is agreeable may need short-term rehabilitation Time with Patient: Greater than 30
--- NOTE | 2018-01-29 16:58 | P.PN ---
Subjective Progress Note Date: 01/29/18 Principal diagnosis: Urine tract infection, pneumonia, intractable pain in the lower thoracic wall as well as the flank area, history of polymicrobial drug-resistant UTI, generalized weakness and medical debility, failed outpatient therapy for pneumonia and UTI metastatic stage IV lung cancer, history of bladder cancer 01/29/2018, patient seen eval examined during the rounds clinically slightly better pain has improved appetite remains poor, labs from today has been reviewed renal functions continued to improve with gentle rehydration urine culture results are still pending 01/28/2018, patient seen eval examined during the rounds clinically slightly better flank pain is improved but is still have generalized weakness appetite remains poor labs reviewed medications reviewed urine culture results are pending patient remains on Rocephin and Zithromax labs reviewed medications reviewed we'll repeat the labs tomorrow 77-year-old male with recent diagnosis of metastatic stage IV lung cancer also has a history of bladder cancer patient the called and said that due to severity of pain and severe flank pain, patient was advised to be admitted into the hospital for failed outpatient therapy, patient has been on oral Levaquin, also have cough congestion or shortness of breath patient admitted into hospital broad-spectrum antibiotics also further evaluation and repeat cultures , patient has been undergoing radiation therapy from radiation oncology Objective - Vital Signs Vital signs: Vital Signs Temp 98.2 F 01/29/18 12:37 Pulse 101 H 01/29/18 12:37 Resp 16 01/29/18 12:37 BP 122/69 01/29/18 12:37 Pulse Ox 95 01/29/18 12:37 Intake & Output 01/28/18 01/29/18 01/29/18 18:59 06:59 18:59 Intake Total 450 1780 450 Output Total 200 1400 900 Balance 250 380 -450 Weight 90.038 kg Intake: Intake, IV Titration 450 300 450 Amount Sodium Chloride 0.9% 1, 400 300 400 000 ml @ 50 mls/hr IV . Q20H [facility] Rx#:[id number] cefTRIAXone 1,000 mg In 50 50 Sodium Chloride 0.9% 50 ml @ 100 mls/hr IVPB Q24HR [facility] Rx#:[id number] Oral 1480 Output: Urine 200 1400 900 Other: # Bowel Movements 0 1 2 - Exam - Constitutional General appearance: average body habitus, cooperative, disheveled, mild distress - EENT Eyes: anicteric sclerae, EOMI, PERRLA, poor dentition, normal appearance ENT: hard of hearing, normal oropharynx Ears: bilateral: normal - Neck Neck: normal ROM Carotids: bilateral: upstroke normal Thyroid: bilateral: normal size - Respiratory Respiratory: bilateral: diminished, rales, wheezing - Cardiovascular Heart sounds: normal: S1, S2 - Gastrointestinal General gastrointestinal: decreased bowel sounds, distended, soft - Integumentary Integumentary: decreased turgor, normal - Neurologic Neurologic: CNII-XII intact - Musculoskeletal Musculoskeletal: gait normal, generalized weakness, strength equal bilaterally - Psychiatric Psychiatric: A&O x's 3, appropriate affect, intact judgment & insight - Labs CBC & Chem 7: 01/29/18 06:38 01/29/18 06:38 Labs: Abnormal Lab Results - Last 24 Hours (Table) 01/28/18 01/28/18 01/29/18 Range/Units 17:08 20:13 06:38 Hgb 12.5 L (13.0-17.5) gm/dL MCHC 30.9 L (31.0-37.0) g/dL Lymphocytes # 0.8 L (1.0-4.8) k/uL Eosinophils # 0.9 H (0-0.7) k/uL Chloride (98-107) mmol/L Carbon Dioxide (22-30) mmol/L BUN (9-20) mg/dL Glucose (74-99) mg/dL POC Glucose (mg/dL) 105 H 151 H (75-99) mg/dL ALT (21-72) U/L Total Protein (6.3-8.2) g/dL Albumin (3.5-5.0) g/dL 01/29/18 Range/Units 06:38 Hgb (13.0-17.5) gm/dL MCHC (31.0-37.0) g/dL Lymphocytes # (1.0-4.8) k/uL Eosinophils # (0-0.7) k/uL Chloride 110 H (98-107) mmol/L Carbon Dioxide 21 L (22-30) mmol/L BUN 24 H (9-20) mg/dL Glucose 107 H (74-99) mg/dL POC Glucose (mg/dL) (75-99) mg/dL ALT 16 L (21-72) U/L Total Protein 6.2 L (6.3-8.2) g/dL Albumin 3.0 L (3.5-5.0) g/dL Microbiology - Last 24 Hours (Table) 01/27/18 12:20 Blood Culture - Preliminary Blood No Growth after 48 hours 01/27/18 12:08 Blood Culture - Preliminary Blood No Growth after 48 hours Assessment and Plan Assessment: Sepsis associated with recurrent urinary tract infection failed outpatient therapy COPD exacerbation occurred pneumonia cannot be excluded Metastatic stage IV lung cancer undergoing radiation therapy Bladder cancer Stage III renal failure Severe of recent E. coli as well as enterococcus urinary tract infection Generalized weakness pain and medical debility with a high risk of complication outpatient therapy Plan: Gentle rehydration Pain management Heart spectrum antibiotics Continue home medications Follow-up on sputum and Urine blood cultures, blood cultures have been negative Labs and chest x-ray Further recommendations pending plan of care as per clinical response of the patient If patient is agreeable and family is agreeable may need short-term rehabilitation Time with Patient: Greater than 30
[2018-01-29] MEDS: diphenhydrAMINE 50 MG CAP PO SCH (17:38)
[2018-01-29] MEDS ORDERED: diphenhydrAMINE 25 MG CAP PO PRN (19:20)
[2018-01-29 20:02] LABS: Glucose,Whole Blood 144 mg/dL (75-99)
[2018-01-29] MEDS: ALPRAZolam 1 MG TAB PO PRN (20:30)
[2018-01-29] MEDS: INSULIN DETEMIR 100 UNIT/ML 10 ML VIAL SQ SCH (20:30)
[2018-01-29] MEDS: ACETAMINOPHEN TAB 500 MG TAB PO SCH (20:30)
[2018-01-29] MEDS: ATORVASTATIN 40 MG TAB PO SCH (20:30)
[2018-01-30] MEDS: SODIUM CHLORIDE 0.9% 1,000 ML IV SCH ×2 (01:11→19:24)
[2018-01-30 07:29] LABS: Glucose,Whole Blood 88 mg/dL (75-99)
[2018-01-30] MEDS: amLODIPine 2.5 MG TAB PO SCH (07:54)
[2018-01-30] MEDS: PANTOPRAZOLE 40 MG TABLET PO SCH ×2 (07:54→17:03)
[2018-01-30] MEDS: AZITHROMYCIN 500 MG TAB PO SCH (07:54)
[2018-01-30] MEDS: LISINOPRIL 5 MG TAB PO SCH (07:54)
[2018-01-30] MEDS: MEGESTROL 40 MG TAB PO SCH ×2 (07:54→08:16)
[2018-01-30] MEDS: DOCUSATE 100 MG CAP PO SCH ×2 (07:54→20:39)
[2018-01-30] MEDS: ASPIRIN 325 MG TAB PO SCH (07:54)
[2018-01-30] MEDS: POLYETHYLENE GLYCOL 3350 17 GM POWD.PACK PO SCH (08:07)
[2018-01-30] MEDS: HYDROcodone/APAP 10-325MG 1 EACH TAB PO PRN ×2 (08:13→20:37)
[2018-01-30 10:54] LABS: Glucose,Whole Blood 117 mg/dL (75-99)
[2018-01-30 17:00] LABS: Glucose,Whole Blood 145 mg/dL (75-99)
[2018-01-30 20:05] LABS: Glucose,Whole Blood 164 mg/dL (75-99)
[2018-01-30] MEDS: ALPRAZolam 1 MG TAB PO PRN (20:37)
[2018-01-30] MEDS: INSULIN DETEMIR 100 UNIT/ML 10 ML VIAL SQ SCH (20:37)
[2018-01-30] MEDS: ATORVASTATIN 40 MG TAB PO SCH (20:37)
[2018-01-30] MEDS: ACETAMINOPHEN TAB 500 MG TAB PO SCH (20:37)
[2018-01-30] MEDS: diphenhydrAMINE 50 MG CAP PO SCH (20:42)
[2018-01-30 23:00] VITALS: TEMP 96.7
[2018-01-31 04:17] VITALS: RESP 20
[2018-01-31 07:09] LABS: Glucose,Whole Blood 75 mg/dL (75-99)
[2018-01-31] MEDS: AZITHROMYCIN 500 MG TAB PO SCH (07:55)
[2018-01-31] MEDS: LISINOPRIL 5 MG TAB PO SCH (07:55)
[2018-01-31] MEDS: POLYETHYLENE GLYCOL 3350 17 GM POWD.PACK PO SCH (07:55)
[2018-01-31] MEDS: MEGESTROL 40 MG TAB PO SCH (07:55)
[2018-01-31] MEDS: amLODIPine 2.5 MG TAB PO SCH (07:55)
[2018-01-31] MEDS: ASPIRIN 325 MG TAB PO SCH (07:55)
[2018-01-31] MEDS: DOCUSATE 100 MG CAP PO SCH (07:55)
[2018-01-31] MEDS: PANTOPRAZOLE 40 MG TABLET PO SCH (07:56)
[2018-01-31] MEDS: HYDROcodone/APAP 10-325MG 1 EACH TAB PO PRN (07:56)
[2018-01-31] MEDS: ONDANSETRON ODT 8 MG TAB.RAPDIS PO PRN (08:40)
[2018-01-31] MEDS ORDERED: LINEZOLID 600 MG TAB PO SCH (10:00)
--- NOTE | 2018-01-31 10:11 | P.PN ---
Subjective Progress Note Date: 01/30/18 Principal diagnosis: Urine tract infection, pneumonia, intractable pain in the lower thoracic wall as well as the flank area, history of polymicrobial drug-resistant UTI, generalized weakness and medical debility, failed outpatient therapy for pneumonia and UTI metastatic stage IV lung cancer, history of bladder cancer 01/30/2018, patient seen eval reexamined during the rounds clinically patient has been doing slightly better in terms of pain denies any flank pain now shortness breath is stable denies any cough or sputum production his urine culture is positive for enterococcus however final ID is pending, I have initiated the consultation with infectious disease services in the meantime we' ll continue current antibiotics continue pain management 01/29/2018, patient seen eval examined during the rounds clinically slightly better pain has improved appetite remains poor, labs from today has been reviewed renal functions continued to improve with gentle rehydration urine culture results are still pending 01/28/2018, patient seen eval examined during the rounds clinically slightly better flank pain is improved but is still have generalized weakness appetite remains poor labs reviewed medications reviewed urine culture results are pending patient remains on Rocephin and Zithromax labs reviewed medications reviewed we'll repeat the labs tomorrow 77-year-old male with recent diagnosis of metastatic stage IV lung cancer also has a history of bladder cancer patient the called and said that due to severity of pain and severe flank pain, patient was advised to be admitted into the hospital for failed outpatient therapy, patient has been on oral Levaquin, also have cough congestion or shortness of breath patient admitted into hospital broad-spectrum antibiotics also further evaluation and repeat cultures , patient has been undergoing radiation therapy from radiation oncology Objective - Vital Signs Vital signs: Vital Signs Temp 96.7 F L 01/31/18 04:16 Pulse 106 H 01/31/18 04:16 Resp 20 01/31/18 04:16 BP 126/77 01/31/18 04:16 Pulse Ox 97 01/31/18 04:16 Intake & Output 01/30/18 01/31/18 01/31/18 18:59 06:59 18:59 Intake Total 1430 Output Total 800 Balance -800 1430 Weight 90.038 kg Intake: Intake, IV Titration 600 Amount Sodium Chloride 0.9% 1, 600 000 ml @ 50 mls/hr IV . Q20H [facility] Rx#:[id number] Oral 830 Output: Urine 800 Other: # Voids 2 # Bowel Movements 1 1 - Exam - Constitutional General appearance: average body habitus, cooperative, disheveled, mild distress - EENT Eyes: anicteric sclerae, EOMI, PERRLA, poor dentition, normal appearance ENT: hard of hearing, normal oropharynx Ears: bilateral: normal - Neck Neck: normal ROM Carotids: bilateral: upstroke normal Thyroid: bilateral: normal size - Respiratory Respiratory: bilateral: diminished, rales, wheezing - Cardiovascular Heart sounds: normal: S1, S2 - Gastrointestinal General gastrointestinal: decreased bowel sounds, distended, soft - Integumentary Integumentary: decreased turgor, normal - Neurologic Neurologic: CNII-XII intact - Musculoskeletal Musculoskeletal: gait normal, generalized weakness, strength equal bilaterally - Psychiatric Psychiatric: A&O x's 3, appropriate affect, intact judgment & insight - Labs CBC & Chem 7: 01/29/18 06:38 01/29/18 06:38 Labs: Abnormal Lab Results - Last 24 Hours (Table) 01/30/18 01/30/18 01/30/18 Range/Units 10:52 16:58 20:04 POC Glucose (mg/dL) 117 H 145 H 164 H (75-99) mg/dL Microbiology - Last 24 Hours (Table) 01/27/18 12:47 Urine Culture - Final Urine,Voided Enterococcus faecium VRE 01/27/18 12:20 Blood Culture - Preliminary Blood No Growth after 72 hours 01/27/18 12:08 Blood Culture - Preliminary Blood No Growth after 72 hours 01/27/18 20:30 Gram Stain - Final Sputum Sputum Culture - Final Assessment and Plan Assessment: Enterococcus urinary tract infection resistant to multiple antibiotics, final ID is pending Sepsis associated with recurrent urinary tract infection failed outpatient therapy COPD exacerbation occurred pneumonia cannot be excluded Metastatic stage IV lung cancer undergoing radiation therapy Bladder cancer Stage III renal failure Severe of recent E. coli as well as enterococcus urinary tract infection Generalized weakness pain and medical debility with a high risk of complication outpatient therapy Plan: Consult ID Gentle rehydration Pain management Heart spectrum antibiotics Continue home medications Follow-up on sputum and Urine blood cultures, blood cultures have been negative Labs and chest x-ray Further recommendations pending plan of care as per clinical response of the patient If patient is agreeable and family is agreeable may need short-term rehabilitation Time with Patient: Greater than 30
--- NOTE | 2018-01-31 10:15 | P.DS ---
Providers Date of admission: 01/27/18 10:20 Expected date of discharge: 01/31/18 Attending physician: Demarcus Sage Consults: 01/30/18 17:23 Consult Physician Routine Consulting Provider: Matti Cline Consult Reason/Comments: antibiotic recommendations for urine culture Do you want consulting provider notified?: Yes Primary care physician: Demarcus Sage Hospital Course: 77-year-old male admitted into the hospital with the flank pain cough shortness of breath not feeling well patient has a history of recurrent UTI prior due to E. coli as well as enterococcus suspected to have similar problem issues with more symptoms patient was treated with broad-spectrum antibiotics also suspected to have possible tracheobronchitis and pneumonia patient has a history of multiple neoplasm, patient responded well with the the antibiotics pain management urine culture result however came back positive for VRE patient is being switched to Zyvox no prescription has been provided further recommendation from infectious diseases pending was seen by infectious disease patient can be discharged home with follow-up in outpatient setting 01/30/2018, patient seen eval reexamined during the rounds clinically patient has been doing slightly better in terms of pain denies any flank pain now shortness breath is stable denies any cough or sputum production his urine culture is positive for enterococcus however final ID is pending, I have initiated the consultation with infectious disease services in the meantime we' ll continue current antibiotics continue pain management 01/29/2018, patient seen eval examined during the rounds clinically slightly better pain has improved appetite remains poor, labs from today has been reviewed renal functions continued to improve with gentle rehydration urine culture results are still pending 01/28/2018, patient seen eval examined during the rounds clinically slightly better flank pain is improved but is still have generalized weakness appetite remains poor labs reviewed medications reviewed urine culture results are pending patient remains on Rocephin and Zithromax labs reviewed medications reviewed we'll repeat the labs tomorrow 77-year-old male with recent diagnosis of metastatic stage IV lung cancer also has a history of bladder cancer patient the called and said that due to severity of pain and severe flank pain, patient was advised to be admitted into the hospital for failed outpatient therapy, patient has been on oral Levaquin, also have cough congestion or shortness of breath patient admitted into hospital broad-spectrum antibiotics also further evaluation and repeat cultures , patient has been undergoing radiation therapy from radiation oncology Pertinent Studies: Chest x-ray multiple bilateral lung masses consistent with prior diagnosis of primary metastatic stage IV neoplasm of the lung, urine culture is positive for VRE sensitive to Zyvox, blood cultures and sputum cultures have been negative Patient Condition at Discharge: Stable Plan - Discharge Summary Discharge Rx Participant: No New Discharge Prescriptions: New Linezolid [Zyvox] 600 mg PO Q12H #14 tab No Action Lansoprazole [Prevacid] 30 mg PO BID Acetaminophen/Diphenhydramine [Tylenol PM 500-25mg] 2 tab PO HS Docusate [Colace] 200 mg PO BID Aspirin 325 mg PO DAILY amLODIPine [Norvasc] 2.5 mg PO DAILY Atorvastatin [Lipitor] 40 mg PO HS Lisinopril [Prinivil] 5 mg PO DAILY Insulin Glargine,Hum.rec.anlog [Lantus Solostar] 25 unit SQ HS ALPRAZolam [Xanax] 1 - 2 mg PO BID PRN PRN Reason: Anxiety Polyethylene Glycol 3350 [Miralax] 17 gm PO DAILY Megestrol Acetate 40 mg PO DAILY Ondansetron [Zofran ODT] 8 mg PO Q4H PRN PRN Reason: Nausea HYDROcodone/APAP 10-325MG [[place] 10-325] 1 tab PO Q6H PRN PRN Reason: Pain Insulin Aspart [NovoLOG (formulary)] See Protocol SQ AC-TID PRN PRN Reason: Blood Sugar - High Levofloxacin [Levaquin] 500 mg PO DAILY Discharge Medication List Acetaminophen/Diphenhydramine [Tylenol PM 500-25mg] 2 tab PO HS 01/27/15 [ History] Aspirin 325 mg PO DAILY 01/27/15 [History] Docusate [Colace] 200 mg PO BID 01/27/15 [History] Lansoprazole [Prevacid] 30 mg PO BID 01/27/15 [History] amLODIPine [Norvasc] 2.5 mg PO DAILY 02/08/17 [History] Atorvastatin [Lipitor] 40 mg PO HS 03/06/17 [History] Insulin Glargine,Hum.rec.anlog [Lantus Solostar] 25 unit SQ HS 03/06/17 [History ] Lisinopril [Prinivil] 5 mg PO DAILY 03/06/17 [History] ALPRAZolam [Xanax] 1 - 2 mg PO BID PRN 10/14/17 [History] Polyethylene Glycol 3350 [Miralax] 17 gm PO DAILY 10/14/17 [History] Megestrol Acetate 40 mg PO DAILY 11/07/17 [History] HYDROcodone/APAP 10-325MG [Mccaulley 10-325] 1 tab PO Q6H PRN 12/19/17 [History] Insulin Aspart [NovoLOG (formulary)] See Protocol SQ AC-TID PRN 12/19/17 [ History] Ondansetron [Zofran ODT] 8 mg PO Q4H PRN 12/19/17 [History] Levofloxacin [Levaquin] 500 mg PO DAILY 01/27/18 [History] Linezolid [Zyvox] 600 mg PO Q12H #14 tab 01/31/18 [Rx] Follow up Appointment(s)/Referral(s): Demarcus Sage MD [Primary Care Provider] - 2 Weeks (Patient will have to call office on and make appt. for 2 weeks - (office was closed on day of discharge and closed on Wednesdays)) Patient Instructions/Handouts: Linezolid (By mouth), Pneumonia (DC)
[2018-01-31 11:20] LABS: Glucose,Whole Blood 108 mg/dL (75-99)
[2018-01-31 12:01] VITALS: BP 126/90; PULSE 99
--- NOTE | 2018-02-01 08:09 | CONS ---
CONSULTATION DATE OF SERVICE: 01/31/2018. REASON FOR CONSULTATION: Antibiotic recommendation. HISTORY OF PRESENT ILLNESS: The patient is a 77-year-old male with a past medical history significant for metastatic stage IV lung cancer and also has a history of a bladder cancer status post bladder resection and urostomy. The patient does give a history of recurrent UTI and did mention has been on multiple antibiotics and the patient started having a pain in the lower abdominal area around his urostomy. Pain has been mostly dull aching 3 to 4/10, and no radiation with associated nausea but no vomiting. Did have some chills. No high-grade fever recorded. His urine was more cloudy with failing outpatient oral Levaquin therapy. The patient has been admitted directly to the hospital and was started on antibiotics. The patient on admission has been afebrile and no fever has been recorded during the hospital stay. The patient did not have elevated white count. His urine was cloudy with 13 WBCs and many bacteria. Cultures finalized yesterday evening with VRE resistant to ampicillin. Hence, infectious disease was consulted for his discharge antibiotics. REVIEW OF SYSTEMS: Positive points have been mentioned in HPI. Other systems have been negative. PAST MEDICAL HISTORY: Coronary artery disease, metastatic stage IV lung cancer as well as bladder cancer, recurrent UTIs, right knee osteoarthritis, renal insufficiency, previous history of MRSA and VRE UTIs. PAST SURGICAL HISTORY: Appendectomy, coronary artery bypass grafting, , hernia repair, tonsillectomy, prostate surgery. SOCIAL HISTORY: Remote history of smoking. No drinking. No drug use. FAMILY HISTORY: Mother with history of MS. Father history of lung cancer. ALLERGIES: TO PLAVIX. MEDICATIONS: The patient is currently on twice a day, Tylenol, [place], Xanax, aspirin, Lipitor, Megace, Zofran, Protonix, MiraLAX. EXAMINATION: Blood pressure 126/77 with a pulse of 106, temperature 96.7, he is 97% on 2 L nasal cannula. General description is an elderly male lying in bed in no distress. No tachypnea or accessory muscles of respiration use. HEENT: Shows no pallor or scleral icterus. Oral mucosa membranes are dry. No pharyngeal erythema or thrush. Neck trachea central. No thyromegaly. Lungs unlabored breathing. Clear to auscultation anteriorly. No wheeze or crackles. Heart S1, S2. Regular rate and rhythm. Abdomen soft. No tenderness. No guarding or rigidity. Extremities: No edema of the feet. Skin Examination: No rash or mass palpable. Neurological: Patient is awake, alert, oriented x3. Mood and affect normal. LABS: Hemoglobin 12.5, white count 7.2, BUN of 24, creatinine 1.23. Electrolytes have been normal. Urine was slightly positive, did show a VRE. DIAGNOSTIC IMPRESSION AND PLAN: Patient with VRE urinary tract infection in this patient who did have a history of bladder cancer status post cystectomy and urostomy admitted to the hospital with abdominal pain, cloudy urine and likely symptomatic urinary tract infection. PLAN: 1. Zyvox p.o. twice a day for 7 days should be adequate for underlying urinary tract infection as with no evidence of any bacteremia. 2. The patient and family has been educated about recurrent UTIs and frequent change of his urostomy bag and to collect urine sample only from a new bag to prevent treatment of a Bradley colonization. The patient was cleared for discharge on oral Zyvox and close outpatient followup. Thank you for the consultation. MMODL / IJN: [id number] /
== END 2018-01-31 14:00 | disposition home or self-care (01) | DRG 871 ==
LOC: 3NMEDONC 10:20
PROVIDERS: ADMIT Internal Medicine Sleep Medicine; ATTEND Internal Medicine Sleep Medicine
DX: A41.9 Sepsis, unspecified organism (principal); J18.9 Pneumonia, unspecified organism; N39.0 Urinary tract infection, site not specified; J44.1 Chronic obstructive pulmonary disease with (acute) exacerbation; C34.90 Malignant neoplasm of unspecified part of unspecified bronchus or lung; C79.9 Secondary malignant neoplasm of unspecified site; J44.0 Chronic obstructive pulmonary disease with (acute) lower respiratory infection; R53.81 Other malaise; Z16.21 Resistance to vancomycin; M54.6 Pain in thoracic spine; I25.10 Atherosclerotic heart disease of native coronary artery without angina pectoris; E11.22 Type 2 diabetes mellitus with diabetic chronic kidney disease; K21.9 Gastro-esophageal reflux disease without esophagitis; E11.40 Type 2 diabetes mellitus with diabetic neuropathy, unspecified; N18.2 Chronic kidney disease, stage 2 (mild); M17.11 Unilateral primary osteoarthritis, right knee; Z96.1 Presence of intraocular lens; Z16.11 Resistance to penicillins; M46.90 Unspecified inflammatory spondylopathy, site unspecified; B95.2 Enterococcus as the cause of diseases classified elsewhere; Z92.3 Personal history of irradiation; Z87.01 Personal history of pneumonia (recurrent); Z85.51 Personal history of malignant neoplasm of bladder; Z93.6 Other artificial openings of urinary tract status; Z90.49 Acquired absence of other specified parts of digestive tract; Z86.14 Personal history of Methicillin resistant Staphylococcus aureus infection; Z95.1 Presence of aortocoronary bypass graft; Z87.440 Personal history of urinary (tract) infections; Z82.49 Family history of ischemic heart disease and other diseases of the circulatory system; Z80.1 Family history of malignant neoplasm of trachea, bronchus and lung; Z88.8 Allergy status to other drugs, medicaments and biological substances; Z87.891 Personal history of nicotine dependence; Z79.899 Other long term (current) drug therapy; Z86.73 Personal history of transient ischemic attack (TIA), and cerebral infarction without residual deficits; I25.2 Old myocardial infarction; Z79.82 Long term (current) use of aspirin; Z79.4 Long term (current) use of insulin; Z90.6 Acquired absence of other parts of urinary tract; Z98.42 Cataract extraction status, left eye; Z98.41 Cataract extraction status, right eye; Z86.010 Personal history of colon polyps
CPT/HCPCS: 71046; 71250; 80053; 81001; 83036; 83735; 84100; 85025; 87040; 87070; 87077; 87086; 87186; 87205; 94760

== ENCOUNTER 2018-02-05 11:55 | Inpatient (IN) | payer MEDICARE, OTHER ==
[2018-02-05] MEDS ORDERED: ONDANSETRON 4 MG/2 ML VIAL IVP STA (12:24)
--- NOTE | 2018-02-05 12:26 | ED ---
General Adult HPI - General Chief complaint: Weakness Stated complaint: SOB, UTI Time Seen by Provider: 02/05/18 12:00 Source: patient, family, RN notes reviewed Mode of arrival: wheelchair Limitations: no limitations - History of Present Illness Initial comments: This is a 77-year-old male who presents emergency Department with metastatic lung cancer. Patient had radiation for cancer swallow. Patient also has a urostomy which his states his been chronically infected for at least a month. Patient comes in today because he was placed on Zyvox for the last urinary tract infection and ever since then he so nauseous she can't eat or drink. Patient also states she's here because he has generalized weakness at this time. Patient denies any chest pain or any increased difficulty breathing or shortness of breath. Patient denies any abdominal pain. Patient states she has chronic back pain but he doesn't want any pain medicine at this time for. Patient denies any recent injury or trauma. Patient has had lightheadedness dizziness or near syncopal episode. Patient denies a headache patient denies numbness weakness. - Related Data Home Medications Medication Instructions Recorded Confirmed Acetaminophen/Diphenhydramine 2 tab PO HS 01/27/15 02/05/18 [Tylenol PM 500-25mg] Aspirin 325 mg PO DAILY 01/27/15 02/05/18 Docusate [Colace] 200 mg PO BID 01/27/15 02/05/18 Lansoprazole [Prevacid] 30 mg PO BID 01/27/15 02/05/18 amLODIPine [Norvasc] 2.5 mg PO DAILY 02/08/17 02/05/18 Atorvastatin [Lipitor] 40 mg PO HS 03/06/17 02/05/18 Insulin Glargine,Hum.rec.anlog 25 unit SQ HS 03/06/17 02/05/18 [Lantus Solostar] Lisinopril [Prinivil] 5 mg PO DAILY 03/06/17 02/05/18 ALPRAZolam [Xanax] 1 - 2 mg PO BID PRN 10/14/17 02/05/18 Megestrol Acetate 40 mg PO DAILY 11/07/17 02/05/18 HYDROcodone/APAP 10-325MG [Wallace 1 tab PO Q6H PRN 12/19/17 02/05/18 10-325] Insulin Aspart [NovoLOG See Protocol SQ AC-TID PRN 12/19/17 02/05/18 (formulary)] Ondansetron [Zofran ODT] 8 mg PO Q4H PRN 12/19/17 02/05/18 Previous Rx's Medication Instructions Recorded Linezolid [Zyvox] 600 mg PO Q12H #14 tab 01/31/18 Allergies Allergy/AdvReac Type Severity Reaction Status Date / Time clopidogrel bisulfate Allergy Severe headache Verified 02/05/18 12:47 [From Plavix] codeine Allergy Nausea & Verified 02/05/18 12:47 Vomiting absorbant pads Allergy Rash/Hives Uncoded 12/19/17 12:09 Review of Systems ROS Statement: Those systems with pertinent positive or pertinent negative responses have been documented in the HPI. ROS Other: All systems not noted in ROS Statement are negative. Past Medical History Past Medical History: Coronary Artery Disease (CAD), Cancer, Chest Pain / Angina , CVA/TIA, Diabetes Mellitus, GERD/Reflux, GI Bleed, Myocardial Infarction (IN) , Osteoarthritis (OA), Renal Disease Additional Past Medical History / Comment(s): Recent bronchitis treated with ABX , watery diarrhea yesterday x5, 2012 aggressive bladder cancer with cystectomy/ urostomy, chronic bladder and now kidney infections, CKD stage II, recently diagnosed with bilateral lung cancer with mets-stage IV/primary unknown- currently receiving radiation palliatively for rib pain/has been told he has 4- 6 months to live, IDDM type II, bilateral feet neuropathy, 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 Last Myocardial Infarction Date:: 1998 History of Any Multi-Drug Resistant Organisms: C-DIFF, MRSA, VRE Date of last positivie culture/infection: 01/27/18 Urine VRE - >1 MRSA MDRO Source:: 2011 MRSA in urine and blood per pt. Past Surgical History: Appendectomy, Coronary Bypass/CABG, Heart Catheterization , Hernia Repair, Orthopedic Surgery, Prostate Surgery, Tonsillectomy Additional Past Surgical History / Comment(s): 11/10/17 mediastinoscopy, 4 vessel CABG 1998, surgery for varicose veins left leg, cystectomy-urostomy, prostatectomy, romulo cataracts with lens implants, rhinoplasty, rt knee arthroscopies, rt shoulder rotator cuff, mult nephrostomy tubes, colonoscopy with benign polypectomy Past Anesthesia/Blood Transfusion Reactions: No Reported Reaction Past Psychological History: Anxiety Smoking Status: Former smoker Past Alcohol Use History: Rare Past Drug Use History: None Reported - Past Family History Mother Family Medical History: Myocardial Infarction (IN) Additional Family Medical History / Comment(s): Mother of a IN at the age of 86yrs. Father Family Medical History: Cancer Additional Family Medical History / Comment(s): Father had lung cancer and . He was a smoker. Sister(s) Family Medical History: Cancer General Exam - General Exam Comments Initial Comments: GENERAL: Patient is well-developed and well-nourished. Patient is nontoxic and well- hydrated and is in mild distress. ENT: Neck is soft and supple. No significant lymphadenopathy is noted. Oropharynx is clear. Moist mucous membranes. Neck has full range of motion without eliciting any pain. EYES: The sclera were anicteric and conjunctiva were pink and moist. Extraocular movements were intact and pupils were equal round and reactive to light. Eyelids were unremarkable. PULMONARY: Unlabored respirations. Good breath sounds bilaterally. No audible rales rhonchi or wheezing was noted. CARDIOVASCULAR: She has a regular rate and rhythm and is tachycardic ABDOMEN: Soft and nontender with normal bowel sounds. Patient has a urostomy. No palpable organomegaly was noted. There is no palpable pulsatile mass. SKIN: Skin is clear with no lesions or rashes and otherwise unremarkable. NEUROLOGIC: Patient is alert and oriented x3. Cranial nerves II through XII are grossly intact. Motor and sensory are also intact. Normal speech, volume and content. Symmetrical smile. MUSCULOSKELETAL: Normal extremities with adequate strength and full range of motion. No lower extremity swelling or edema. No calf tenderness. LYMPHATICS: No significant lymphadenopathy is noted PSYCHIATRIC: Normal psychiatric evaluation. Limitations: no limitations Course Vital Signs 02/05/18 02/05/18 11:59 13:55 Temperature 97.8 F Pulse Rate 119 H 105 H Respiratory 18 20 Rate Blood Pressure 154/81 127/87 O2 Sat by Pulse 94 L 97 Oximetry Medical Decision Making - Medical Decision Making EKG shows sinus tachycardia at 110 beats a minute WV interval 226 dresses 108 QT interval 350 QTC is 473. Patient's EKG shows no ST segment elevation there is slight ST segment depression seen in precordial leads V3 the 4. Chest x-ray showed no acute abnormality. I went back into reevaluate the patient he was still nauseous and patient continues to be weak and doesn't feel as though he can go home. I spoke with Sayed he agreed to stop the Zyvox because it seemed to be given the patient 2 many side effects. I spoke with Dr. Johnson agreed to admit the patient I wrote admitting orders. - Lab Data Result diagrams: 02/05/18 12:25 02/05/18 12:25 Lab Results 02/05/18 02/05/18 02/05/18 Range/Units 12:25 12:25 12:25 WBC 8.3 (3.8-10.6) k/uL RBC 4.85 (4.30-5.90) m/uL Hgb 14.0 (13.0-17.5) gm/dL Hct 44.4 (39.0-53.0) % MCV 91.6 (80.0-100.0) fL MCH 28.8 (25.0-35.0) pg MCHC 31.5 (31.0-37.0) g/dL RDW 13.9 (11.5-15.5) % Plt Count 294 (150-450) k/uL Neutrophils % 78 % Lymphocytes % 8 % Monocytes % 6 % Eosinophils % 6 % Basophils % 1 % Neutrophils # 6.4 (1.3-7.7) k/uL Lymphocytes # 0.6 L (1.0-4.8) k/uL Monocytes # 0.5 (0-1.0) k/uL Eosinophils # 0.5 (0-0.7) k/uL Basophils # 0.1 (0-0.2) k/uL PT (9.0-12.0) sec INR (<1.2) APTT (22.0-30.0) sec Sodium 136 L (137-145) mmol/L Potassium 5.0 (3.5-5.1) mmol/L Chloride 106 (98-107) mmol/L Carbon Dioxide 18 L (22-30) mmol/L Anion Gap 12 mmol/L BUN 17 (9-20) mg/dL Creatinine 1.10 (0.66-1.25) mg/dL Est GFR (CKD-EPI)AfAm 74 (>60 ml/min/1.73 sqM) Est GFR (CKD-EPI)NonAf 64 (>60 ml/min/1.73 sqM) Glucose 115 H (74-99) mg/dL Plasma Lactic Acid Lang 2.7 H* (0.7-2.0) mmol/L Calcium 10.0 (8.4-10.2) mg/dL Total Bilirubin 0.6 (0.2-1.3) mg/dL AST 31 (17-59) U/L ALT 19 L (21-72) U/L Alkaline Phosphatase 133 H (38-126) U/L Total Protein 7.3 (6.3-8.2) g/dL Albumin 3.6 (3.5-5.0) g/dL Urine Color Urine Appearance (Clear) Urine pH (5.0-8.0) Ur Specific [place] (1.001-1.035) Urine Protein (Negative) Urine Glucose (UA) (Negative) Urine Ketones (Negative) Urine Blood (Negative) Urine Nitrite (Negative) Urine Bilirubin (Negative) Urine Urobilinogen (<2.0) mg/dL Ur Leukocyte Esterase (Negative) Urine RBC (0-5) /hpf Urine WBC (0-5) /hpf Hyaline Casts (0-2) /lpf Urine Mucus (None) /hpf 02/05/18 02/05/18 Range/Units 12:25 12:25 WBC (3.8-10.6) k/uL RBC (4.30-5.90) m/uL Hgb (13.0-17.5) gm/dL Hct (39.0-53.0) % MCV (80.0-100.0) fL MCH (25.0-35.0) pg MCHC (31.0-37.0) g/dL RDW (11.5-15.5) % Plt Count (150-450) k/uL Neutrophils % % Lymphocytes % % Monocytes % % Eosinophils % % Basophils % % Neutrophils # (1.3-7.7) k/uL Lymphocytes # (1.0-4.8) k/uL Monocytes # (0-1.0) k/uL Eosinophils # (0-0.7) k/uL Basophils # (0-0.2) k/uL PT 11.5 (9.0-12.0) sec INR 1.1 (<1.2) APTT 27.1 (22.0-30.0) sec Sodium (137-145) mmol/L Potassium (3.5-5.1) mmol/L Chloride (98-107) mmol/L Carbon Dioxide (22-30) mmol/L Anion Gap mmol/L BUN (9-20) mg/dL Creatinine (0.66-1.25) mg/dL Est GFR (CKD-EPI)AfAm (>60 ml/min/1.73 sqM) Est GFR (CKD-EPI)NonAf (>60 ml/min/1.73 sqM) Glucose (74-99) mg/dL Plasma Lactic Acid Lang (0.7-2.0) mmol/L Calcium (8.4-10.2) mg/dL Total Bilirubin (0.2-1.3) mg/dL AST (17-59) U/L ALT (21-72) U/L Alkaline Phosphatase (38-126) U/L Total Protein (6.3-8.2) g/dL Albumin (3.5-5.0) g/dL Urine Color Yellow Urine Appearance Turbid (Clear) Urine pH 6.0 (5.0-8.0) Ur Specific [place] 1.011 (1.001-1.035) Urine Protein 2+ H (Negative) Urine Glucose (UA) Negative (Negative) Urine Ketones Negative (Negative) Urine Blood Negative (Negative) Urine Nitrite Negative (Negative) Urine Bilirubin Negative (Negative) Urine Urobilinogen <2.0 (<2.0) mg/dL Ur Leukocyte Esterase Negative (Negative) Urine RBC <1 (0-5) /hpf Urine WBC 8 H (0-5) /hpf Hyaline Casts 1 (0-2) /lpf Urine Mucus Rare H (None) /hpf Disposition Clinical Impression: Metastatic lung cancer (metastasis from lung to other site), Adverse drug reaction, Generalized weakness Disposition: ADMITTED IP TO THIS [facility] Referrals: Miguel Vazquez MD [Primary Care Provider] - 1-2 days Time of Disposition: 14:23
[2018-02-05] MEDS: SODIUM CHLORIDE 0.9% 500 ML 500 ML IV SCH ×2 (12:35→14:37)
[2018-02-05 13:02] LABS: Basophils # (A) 0.1 k/uL (0-0.2); Basophils % (A) 1 %; Eosinophils # (A) 0.5 k/uL (0-0.7); Eosinophils % (A) 6 %; HCT 44.4 % (39.0-53.0); Lymphocytes # (A) 0.6 k/uL (1.0-4.8); Lymphocytes % (A) 8 %; MCH 28.8 pg (25.0-35.0); MCHC 31.5 g/dL (31.0-37.0); MCV 91.6 fL (80.0-100.0); Mean Platelet Volume 7.3; Monocytes # (A) 0.5 k/uL (0-1.0); Monocytes % (A) 6 %; Neutrophils # (A) 6.4 k/uL (1.3-7.7); Neutrophils % (A) 78 %; Platelet Count 294 k/uL (150-450); RBC 4.85 m/uL (4.30-5.90); RDW 13.9 % (11.5-15.5); WBC 8.3 k/uL (3.8-10.6)
[2018-02-05 13:12] LABS: INR 1.1 (<1.2); Partial Thromboplastin Time 27.1 sec (22.0-30.0); Prothrombin Time 11.5 sec (9.0-12.0)
[2018-02-05 13:18] LABS: Albumin 3.6 g/dL (3.5-5.0); Appearance,Urine Turbid (Clear); Bilirubin,Urine Negative (Negative); Blood,Urine Negative (Negative); Color,Urine Yellow; Glucose,Urine (UA) Negative (Negative); Hyaline Casts,Urine 1 /lpf (0-2); Ketones,Urine Negative (Negative); Leukocyte Esterase,Urine Negative (Negative); Mucus,Urine Rare /hpf; Nitrite,Urine Negative (Negative); Protein,Urine 2+ (Negative); RBC,Urine <1 /hpf (0-5); Specific Gravity,Urine 1.011 (1.001-1.035); Total Bilirubin 0.6 mg/dL (0.2-1.3); Total Protein 7.3 g/dL (6.3-8.2); Urobilinogen,Urine <2.0 mg/dL (<2.0); WBC,Urine 8 /hpf (0-5)
--- NOTE | 2018-02-05 13:21 | XR ---
EXAMINATION TYPE: XR chest 2V DATE OF EXAM: 02/05/2018 COMPARISON: Chest x-ray from January 27, 2018. CT chest from January 25, 2018. HISTORY: History of metastatic lung cancer with fever and generalized weakness. TECHNIQUE: Frontal and lateral views of the chest are obtained. FINDINGS: Overlying sternal wires are redemonstrated. Surgical changes right humerus is again seen. Cardiac silhouette size is stable and within normal limits. There is background chronic emphysematous change with large peripheral right upper lobe bulla and scattered rounded opacities bilaterally cons istent with cavitary nodules and/or septic emboli are redemonstrated. There is persistent small to mo derate size right pleural effusion and right hilar masslike consolidation. IMPRESSION: Overall stable findings, chronic parenchymal changes with small to moderate size right p leural effusion. Stable right hilar masslike consolidation or neoplasm with multifocal nodules could reflect metastatic disease and/or septic emboli given patient history.
[2018-02-05] MEDS ORDERED: SODIUM CHLORIDE 0.9% 1,000 ML IV ONE (14:23)
[2018-02-05] MEDS ORDERED: ONDANSETRON ODT 8 MG TAB.RAPDIS PO PRN (15:46)
[2018-02-05] MEDS: HYDROcodone/APAP 10-325MG 1 EACH TAB PO PRN ×2 (15:52→20:51)
[2018-02-05 17:32] LABS: Glucose,Whole Blood 104 mg/dL (75-99)
[2018-02-05 17:51] VITALS: BMI 27.6
[2018-02-05] MEDS: ALPRAZolam 1 MG TAB PO PRN (20:51)
[2018-02-05] MEDS: ONDANSETRON 4 MG/2 ML VIAL IVP PRN (20:54)
[2018-02-05] MEDS ORDERED: INSULIN ASPART 100 UNIT/ML 1 ML 10 ML VIAL SQ SCH (21:00)
[2018-02-05] MEDS ORDERED: DOCUSATE 100 MG CAP PO SCH (21:00)
[2018-02-05 21:12] LABS: Glucose,Whole Blood 109 mg/dL (75-99)
[2018-02-05] MEDS: PANTOPRAZOLE 40 MG TABLET PO SCH (22:26)
[2018-02-05] MEDS: ATORVASTATIN 40 MG TAB PO SCH (22:26)
[2018-02-05] MEDS ORDERED: CALCIUM CARBONATE 500 MG CHEWABLE PO PRN (23:02)
[2018-02-05] MEDS ORDERED: ACETAMINOPHEN TAB 325 MG TAB PO PRN (23:02)
[2018-02-05] MEDS ORDERED: NALOXONE 0.4 MG/ML 1 ML VIAL IV PRN (23:02)
[2018-02-05] MEDS: INSULIN DETEMIR 100 UNIT/ML 10 ML VIAL SQ SCH (23:13)
--- NOTE | 2018-02-06 00:12 | HP ---
HISTORY AND PHYSICAL DATE OF ADMISSION: February 05, 2018. PRESENTING COMPLAINT: Nausea, vomiting, diarrhea. HISTORY OF PRESENTING COMPLAINT: This is a pleasant 77-year-old patient of Dr. Vazquez. The patient was diagnosed with stage IV metastatic lung cancer about 6 months ago and followed by Dr. BERTHA Blanchard. The patient has received 6 rounds of radiation treatment. The patient's chronic stable medical conditions include coronary artery disease, diabetes, GERD, osteoarthritis. The patient in 2011 had a bladder cancer with cystectomy and urostomy and now has chronic kidney disease. The patient also got radiation for palliative treatment presented with pain. The patient has also got bilateral feet neuropathy and also has arthritis in multiple joints. The patient was recently in the hospital and on January 27, 2018 diagnosed to have VRE and seen by Dr. Demarcus Sage and was discharged on Zyvox. The patient has been having nausea vomiting for close to 10 days and also was having diarrhea, feeling weak, tired and exhausted and decided to come in. Appetite is not good. No obvious fever or chills. Some abdominal discomfort. REVIEW OF SYSTEMS: CONSTITUTIONAL: Weak and tired. HEENT: None. RESPIRATORY: Baseline some shortness of breath. CARDIOVASCULAR: None. GASTROINTESTINAL as above. GENITOURINARY none. MUSCULOSKELETAL: Pain in the joints. DERMATOLOGICAL, HEMATOLOGIC, LYMPHATICS: none. PSYCHIATRY none. NEUROLOGICAL: Numbness and tingling in hands and feet. PAST MEDICAL HISTORY: Coronary artery disease, lung cancer, bladder cancer, stroke with no residual, diabetes mellitus type 2, GERD, GI bleed, osteoarthritis. 2011, aggressive bladder cancer with cystectomy, urostomy, chronic bladder now, kidney infection, chronic kidney stage 2, recently diagnosed with bilateral lung cancer with METS, stage IV, receiving radiation treatment palliatively for rib pain, diabetes type 2, bilateral peripheral neuropathy, arthritis, L1 fracture, diverticulitis, diverticulosis with rectal bleed, hiatal hernia, C diff in the past, VRE on January 27, 2018. PAST SURGICAL HISTORY: Appendectomy, coronary bypass, prostate surgery, 4-vessel bypass in 1998, surgery for varicose veins, left leg, cystectomy, urostomy, prostatectomy, bilateral cataract lens implant, frenuloplasty, right shoulder rotator cuff surgery, multiple nephrostomy tubes. PSYCH HISTORY: Anxiety. SOCIAL HISTORY: . Uses a cane and uses home oxygen 2 L. The patient smoked for about 35 years, stopped in 2001. 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 . FAMILY HISTORY: Father had lung cancer, . He was a smoker. HOME MEDICATIONS: 1. [place] 10 1 tablet p.o. q.6h p.r.n. 2. Xanax 1-2 mg p.o. b.i.d. p.r.n. 3. Norvasc 2.5 mg p.o. daily. 4. Zofran 8 mg q.4 p.r.n. 5. Magestriol 40 mg p.o. daily. 6. Prinivil 5 mg p.o. daily. 7. Zyvox 600 mg p.o. q.12. 8. Prevacid 30 mg p.o. b.i.d. 9. NovoLog Lantus 25 units subcu q.h.s. 10.Colace 200 mg b.i.d. 11.Lipitor 40 mg q.h.s. 12.Aspirin 325 p.o. daily. 13.Tylenol p.m. 2 tablets q.h.s. ALLERGIES: TO PLAVIX, CODEINE. PHYSICAL EXAMINATION: VITAL SIGNS: Temperature 97.8 pulse 109, respiration 18, blood pressure 150/81, pulse ox 94 percent on room air. GENERAL APPEARANCE average build lying in bed tired- appearing. EYES: Pupils equal. Conjunctivae pale. HEENT: External appearance of nose and ears normal. Oral cavity dry mucous membranes. NECK: JVD not raised. Mass not palpable. RESPIRATORY: Effort normal. LUNGS: Slightly decreased breath sounds. CARDIOVASCULAR: 1st and 2nd sounds no edema. ABDOMEN: Soft, nontender. Liver and spleen not palpable. LYMPHATICS: No lymph nodes palpable in the neck or axillae. PSYCHIATRIC: Alert and oriented times three. Mood and affect normal. NEUROLOGICAL: Pupils equal. Cranial nerves grossly intact. Power and sensation grossly intact. INVESTIGATIONS: White count 8.3, hemoglobin 14, potassium 5, BUN 17, creatinine 1.10. EKG tracing personally reviewed by me shows sinus tachycardia. Chest x-ray film personally reviewed by me shows multiple changes. Unable to determine if this is acute, but definitely multiple changes. ASSESSMENT: 1. This is a patient who presents with acute nausea, vomiting, diarrhea, who has been on Zyvox and was hospitalized not too long ago. Need to rule out C diff. 2. Clinically dehydrated from the above. 3. Metastatic stage IV lung cancer for which she has undergone palliative radiation treatment. 4. Recent urinary tract infection with cystitis from VRE for which patient was on Zyvox. Will change to IV linezolid. 5. Coronary artery disease, prior history of bypass stent. 6. Diabetes mellitus type 2. 7. Gastroesophageal reflux disease. 8. Primary osteoarthritis. 9. Probably type 2 lactic acidosis. No evidence of obvious infection currently. 10.Chronic hypoxic respiratory failure on home oxygen. 11.Primary osteoarthritis. PLAN: Stool will be set up for C diff. Patient is put on IV fluids. Home medications reviewed. Accu-Cheks will be followed. The patient will be put on IV fluids and a full liquid diet. We will change to IV linezolid. Consultation will be made to Dr. BERTHA Blanchard and Dr. Demarcus Sage from Infectious Disease. Care was discussed with the patient. Prognosis is guarded. Copy to Dr. Vazquez. LARISA / [place]: [id number] /
[2018-02-06] MEDS: LINEZOLID 600 MG in DEXTROSE/WATER 1 300ML.BAG IVPB SCH ×2 (00:29→10:05)
[2018-02-06] MEDS: ALPRAZolam 1 MG TAB PO PRN ×2 (02:50→13:56)
[2018-02-06] MEDS: MELATONIN 3 MG TABLET PO PRN ×2 (02:50→20:49)
[2018-02-06] MEDS: HYDROcodone/APAP 10-325MG 1 EACH TAB PO PRN ×3 (02:50→20:46)
[2018-02-06 08:01] LABS: Glucose,Whole Blood 104 mg/dL (75-99)
[2018-02-06] MEDS ORDERED: ASPIRIN 325 MG TAB PO SCH (09:00)
[2018-02-06] MEDS: INSULIN ASPART 100 UNIT/ML 1 ML 10 ML VIAL SQ SCH ×4 (09:03→20:52)
[2018-02-06] MEDS: ENOXAPARIN 40 MG/0.4 ML SYRINGE SQ SCH (09:23)
[2018-02-06] MEDS: ASPIRIN 81 MG PO SCH (09:23)
[2018-02-06] MEDS: MEGESTROL 40 MG TAB PO SCH (09:23)
[2018-02-06] MEDS: LISINOPRIL 5 MG TAB PO SCH (09:23)
[2018-02-06] MEDS: PANTOPRAZOLE 40 MG TABLET PO SCH ×2 (09:24→17:50)
[2018-02-06] MEDS: amLODIPine 2.5 MG TAB PO SCH (09:24)
[2018-02-06 11:51] LABS: Glucose,Whole Blood 178 mg/dL (75-99)
[2018-02-06] MEDS: ONDANSETRON 4 MG/2 ML VIAL IVP PRN (13:55)
[2018-02-06 17:22] LABS: Glucose,Whole Blood 103 mg/dL (75-99)
[2018-02-06] MEDS: ATORVASTATIN 40 MG TAB PO SCH (20:46)
[2018-02-06] MEDS: INSULIN DETEMIR 100 UNIT/ML 10 ML VIAL SQ SCH (20:49)
[2018-02-06 21:09] LABS: Glucose,Whole Blood 155 mg/dL (75-99)
--- NOTE | 2018-02-06 22:17 | CONS ---
CONSULTATION Storm Nunn is a 77-year-old male who presented to the ER at [facility] with increasing weakness. He also had some nausea and some vomiting. He subsequently was seen in the ED, thought to have had a reaction to Zyvox and subsequently was admitted for further evaluation. He complains of an occasional cough. No hemoptysis and no significant sputum production at this time. He recently was admitted to the hospital with what was thought to be a urinary tract infection. He has a known history of metastatic lung cancer and a urostomy. PAST MEDICAL HISTORY: Positive for history of lung cancer, coronary artery disease, CVA, diabetes mellitus, history of bladder cancer with cystectomy and urostomy, history of hiatal hernia, mediastinoscopy, coronary artery disease status post coronary artery bypass, previous nephrostomy tubes. SOCIAL HISTORY: Patient is a former smoker. Does not drink alcohol excessively. FAMILY HISTORY: Positive for MO in his mother. Cancer in his father in the form of lung cancer. REVIEW OF SYSTEMS: Is noncontributory. MEDICATIONS: Prior to admission were: 1. Hydrocodone with acetaminophen. 2. Xanax. 3. Norvasc. 4. Zofran. 5. Megace. 6. Prinivil. 7. Zyvox. 8. Prevacid. 9. NovoLog. 10.Lantus. 11.Colace. 12.Lipitor. 13.Tylenol p.m. 14.Aspirin. REVIEW OF SYSTEMS: Noncontributory. PHYSICAL EXAMINATION: Blood pressure is 120/71, respiratory rate of 18, pulse of 100, temperature 97.5, O2 saturation on room air is 95%. HEENT was pupils are equal. No jugular venous distention. Chest reveals scattered rhonchi. Cardiovascular system is S1, S2. ABDOMEN: Soft. There is no there is evidence of previous cystoscopy and urostomy in place. There is no pedal edema. White count is 8.3, hemoglobin of 14. Sodium 136, potassium 5, chloride 106, bicarb 18, glucose is 115. X-RAY: Chest x-ray shows chronic parenchymal changes with a [id number] right-sided pleural effusion and evidence of a previous right sided hilar masslike consolidation with multifocal nodules. IMPRESSION: At this time: 1. Urinary tract infection. 2. Medical debility. 3. Lung cancer with metastatic disease. 4. Possible chronic obstructive pulmonary disease. 5. Coronary artery disease. At this point in time, the patient's did approach me regarding possible hospice care. For now would recommend continuing antibiotics. Consider hospice care. We will set up a hospice informational meeting. Keep him on his current medications and as he does not have any significant shortness of breath at this time, would hold off on bronchodilators. Keep him on DVT prophylaxis. His prognosis is guarded. Comfort oriented care might be appropriate in his case. MMODL / IJN: [id number] /
--- NOTE | 2018-02-07 00:44 | PN ---
PROGRESS NOTE DATE OF SERVICE: 02/06/2018. PRESENTING COMPLAINT: Tired. INTERVAL HISTORY: This is a patient with metastatic lung cancer, presented with nausea, vomiting, diarrhea, was put on IV fluids. Also patient was put on IV linezolid as patient is not able to tolerate Zyvox at home that was for use urinary VRE. This morning feels better, no further nausea or vomiting. Tired. Did tolerate some liquid diet. A shade better sitting up in a chair. The patient's family including his is present. REVIEW OF SYSTEMS: Done for constitutional, cardiovascular, GI, pulmonary; relevant findings as above. CURRENT MEDICATIONS: Reviewed. EXAMINATION: Temperature 97.5, pulse 100, respirations 8, blood pressure 120/71, pulse ox 95% on room air. GENERAL APPEARANCE: Sitting up in a chair, awake, tired-appearing. EYES: Pupils equal. Conjunctivae pale. NECK: JVD not raised. Mass not palpable. Respiratory effort normal. LUNGS: Decreased breath sounds. CARDIOVASCULAR: 1st and 2nd heart sounds normal. No edema. ABDOMEN: Soft, nontender. Liver and spleen not palpable. PSYCHIATRY: Alert and oriented x3. Mood and affect, feeling somewhat a bit low. INVESTIGATIONS: Accu-Cheks are noted. ASSESSMENT: 1. Dehydration present on admission. 2. Metastatic stage IV lung cancer with patient being on palliative radiation treatment. 3. Recent urinary tract infection from cystitis from VRE, for which patient was on Zyvox. 4. Coronary artery disease with prior history of bypass and stent. 5. Diabetes mellitus type 2. 6. Gastroesophageal reflux disease. 7. Primary osteoarthritis. 8. Type 2 lactic acidosis. No evidence of other infection. 9. Chronic hypoxic respiratory failure on home oxygen. 10.Primary osteoarthritis. PLAN: Continue with IV fluids. Talk to the patient and . Will see how the patient does. Later I was given a call that the patient is looking at leaning toward maybe hospice. Will discuss with the patient and family. In the meantime, continue current medication and treatment plan. MMODL / IJN: [id number] /
[2018-02-07 06:18] VITALS: BP 137/79; PULSE 110; RESP 22; TEMP 97.5
[2018-02-07 07:29] LABS: Glucose,Whole Blood 82 mg/dL (75-99)
[2018-02-07] MEDS: INSULIN ASPART 100 UNIT/ML 1 ML 10 ML VIAL SQ SCH ×2 (07:30→12:06)
[2018-02-07] MEDS: ENOXAPARIN 40 MG/0.4 ML SYRINGE SQ SCH (07:32)
[2018-02-07] MEDS: amLODIPine 2.5 MG TAB PO SCH (07:33)
[2018-02-07] MEDS: PANTOPRAZOLE 40 MG TABLET PO SCH (07:33)
[2018-02-07] MEDS: ASPIRIN 81 MG PO SCH (07:33)
[2018-02-07] MEDS: LISINOPRIL 5 MG TAB PO SCH (07:33)
[2018-02-07] MEDS: MEGESTROL 40 MG TAB PO SCH (07:33)
[2018-02-07] MEDS: HYDROcodone/APAP 10-325MG 1 EACH TAB PO PRN (07:34)
--- NOTE | 2018-02-07 10:57 | CONS ---
CONSULTATION DATE OF SERVICE: 02/06/2018. REASON FOR CONSULTATION: Urinary tract infection and diarrhea. HISTORY OF PRESENT ILLNESS: The patient is a 77-year-old male with a past medical history significant for bladder cancer. The patient is status post cystectomy and urostomy. The patient was recently admitted at this facility for symptoms suspicious for urinary tract infection. The patient's urine culture was finalized with VRE. The patient was started on Zyvox. I was consulted the day of discharge. The patient did have overall improvement and was insisting on going home. Hence the patient was advised a 7 day course of oral Zyvox. The patient is now presenting back to the [facility] ER with chief complaints of feeling nauseated, but no vomiting and unable to keep anything down and has been complaining of feeling weak, generalized weakness. The patient denies any abdominal pain, however, did have multiple loose stools though. No fever or chills. The patient was evaluated by the ER physician. On arrival to the ER the patient has been afebrile. His white count was normal. His UA was completely negative with the leukocyte esterace negative, only 8 WBC. Blood culture has been negative. Patient was started on IV Zyvox and admitted to the hospital. Infectious Disease was consulted for further recommendation regarding antibiotic therapy. REVIEW OF SYSTEMS: Positive points have been mentioned in HPI. Other systems have been negative. PAST MEDICAL HISTORY: Coronary artery disease, metastatic stage IV lung cancer. The patient has history of cancer, recurrent UTIs, right knee osteoarthritis, urinary insufficiency. Previous history of MRSA and VRE UTI's. SURGICAL HISTORY: Appendectomy, coronary artery bypass grafting, hernia repair, tonsillectomy, prostate surgery, cystectomy and urostomy. SOCIAL HISTORY: Remote history of smoking. No drinking or drug use. FAMILY HISTORY: history of VT. Father history of lung cancer. ALLERGIES: TO PLAVIX. MEDICATION: Currently include the patient is on Tylenol, [place], Xanax, Norvasc, aspirin, Lipitor, Tums, Lovenox, NovoLog, Levemir, Zestril, Megace, Melatonin, Narcan, Zofran Protonix and IV Zyvox. PHYSICAL EXAMINATION: Blood pressure is 103/59 with a pulse of 100. Temperature 98.9. He is 97% on room air. General description is an elderly male up in the chair in no distress. No tachypnea or accessory muscle of respiration use. HEENT: Shows no pallor or scleral icterus. Oral mucosa membranes are dry. No pharyngeal erythema or thrush. Neck trachea is central. No thyromegaly. LUNGS: Unlabored breathing. Clear to auscultation anteriorly. No wheeze or crackles. Heart S1, S2. Regular rate and rhythm. ABDOMEN: Soft, no tenderness. No guarding or rigidity. EXTREMITIES: No edema of feet. Skin examination: No rash or mass palpable. Neurological: Patient is awake, alert, oriented x3. Mood and affect normal. LABS: Hemoglobin is 14, white count of 8.3, BUN of 17, creatinine 1.10. Electrolytes slightly elevated 2.7-2.9, and platelet has been normal. UA is negative. IMPRESSION AND PLAN: Patient admitted to the hospital with acute nausea, unable to keep anything down along with diarrhea in a patient who was recently diagnosed with VRE UTI with question of possible side effects from the medication. However underlying C difficile colitis, not entirely excluded as the patient does have previous history of C difficile colitis and has been exposed to antibiotic. Clinically doubt UTI or any UTI other. PLAN: 1. Discontinue the Zyvox as clinically doubt urinary tract infection at this point. 2. We will check a stool for C diff and treat if positive. 3. IV fluid and symptomatic treatment for his nausea, vomiting, medication for the diarrhea as the patient did have a bowel movement since last night. 4. We will follow up on clinical condition and further adjust medication if needed. Thank you for this consultation. We will follow this patient along with you. MMODL / IJN: [id number] /
[2018-02-07] MEDS ORDERED: diphenhydrAMINE 25 MG CAP PO PRN (11:14)
[2018-02-07 12:05] LABS: Glucose,Whole Blood 108 mg/dL (75-99)
--- NOTE | 2018-02-08 09:15 | DS ---
DISCHARGE SUMMARY DATE OF ADMISSION: 02/05/2018 DATE OF DISCHARGE: 02/07/2018 FINAL DIAGNOSES: 1. Dehydration, present on admission. 2. Metastatic stage IV lung cancer. The patient has been getting palliative radiation treatment. 3. Recent urinary tract infection from cystitis from VRE. 4. Coronary artery disease with prior history of bypass and stents. 5. Diabetes mellitus type 2. 6. Gastroesophageal reflux disease. 7. Primary osteoarthritis. 8. Type 2 lactic acidosis. No evidence for infection. 9. Chronic hypoxic respiratory failure on home oxygen. 10.Primary osteoarthritis. CONSULTATION: Dr. Nataly Blanchard from Pulmonary; Dr. Cline from Infectious Disease. HOSPITAL COURSE: This is a patient of Dr. Vazquez diagnosed with stage IV metastatic lung cancer, has had 6 rounds of radiation treatment. The patient did also see Dr. Flores, but because of poor status not to be offered any further chemotherapy. The patient recently was getting Zyvox for UTI, was started having nausea and vomiting, could not keep anything down, presented with rather dehydration, was given IV fluids and resuscitated, started to do better. Patient has decided to proceed with hospice. No further antibiotics were indicated. The patient tolerating a diet, has got home oxygen. is present. All questions were answered. PHYSICAL EXAMINATION: On examination, temperature 97.5, pulse 110, respirations 22, blood pressure 137/79, pulse ox 93% on 3 L. LUNGS: Decreased breath sounds. PSYCH: AO x3. The patient is tolerating a light diet. Discussion discharge planning more than 35 minutes. DISCHARGE MEDICATIONS: 1. Tylenol PM 2 tablets p.o. q.h.s. 2. Prevacid 30 mg b.i.d. 3. Norvasc 2.5 p.o. daily. 4. Lipitor 40 mg q.h.s. 5. Lantus 25 units subcutaneous q.h.s. 6. Prinivil 5 mg p.o. daily. 7. Xanax 1 to 2 mg p.o. b.i.d. p.r.n. 8. Megace 40 mg p.o. daily. 9. [place] 10 one tablet q.6 p.r.n. 10.NovoLog per scale. 11.Zofran 4 mg q.8 p.r.n. 12.Aspirin 81 mg a day. 13.Home oxygen to continue. Follow up with Dr. Vazquez in 2 days. Hospice will be coming out to the patient tomorrow to establish the same. Questions were answered. MMODL / IJN: [id number] /
== END 2018-02-07 13:31 | disposition hospice, home (50) | DRG 641 ==
LOC: EC 11:55 → 4MS4W 14:23
PROVIDERS: ADMIT Hospitalist; ATTEND Hospitalist
DX: E86.0 Dehydration (principal); C34.92 Malignant neoplasm of unspecified part of left bronchus or lung; C34.91 Malignant neoplasm of unspecified part of right bronchus or lung; C79.9 Secondary malignant neoplasm of unspecified site; J96.11 Chronic respiratory failure with hypoxia; E11.22 Type 2 diabetes mellitus with diabetic chronic kidney disease; E87.2 Acidosis; J44.9 Chronic obstructive pulmonary disease, unspecified; E11.42 Type 2 diabetes mellitus with diabetic polyneuropathy; G89.29 Other chronic pain; I25.10 Atherosclerotic heart disease of native coronary artery without angina pectoris; I25.2 Old myocardial infarction; K21.9 Gastro-esophageal reflux disease without esophagitis; N18.2 Chronic kidney disease, stage 2 (mild); F41.9 Anxiety disorder, unspecified; K44.9 Diaphragmatic hernia without obstruction or gangrene; M54.9 Dorsalgia, unspecified; R19.7 Diarrhea, unspecified; M15.9 Polyosteoarthritis, unspecified; M47.9 Spondylosis, unspecified; K57.90 Diverticulosis of intestine, part unspecified, without perforation or abscess without bleeding; Z79.4 Long term (current) use of insulin; Z79.82 Long term (current) use of aspirin; Z79.899 Other long term (current) drug therapy; Z85.51 Personal history of malignant neoplasm of bladder; Z86.14 Personal history of Methicillin resistant Staphylococcus aureus infection; Z86.73 Personal history of transient ischemic attack (TIA), and cerebral infarction without residual deficits; Z87.891 Personal history of nicotine dependence; Z90.6 Acquired absence of other parts of urinary tract; Z93.6 Other artificial openings of urinary tract status; Z95.1 Presence of aortocoronary bypass graft; Z99.81 Dependence on supplemental oxygen; Z87.440 Personal history of urinary (tract) infections; Z88.5 Allergy status to narcotic agent; Z88.8 Allergy status to other drugs, medicaments and biological substances; Z86.010 Personal history of colon polyps; Z98.42 Cataract extraction status, left eye; Z98.41 Cataract extraction status, right eye; Z96.1 Presence of intraocular lens; Z90.49 Acquired absence of other specified parts of digestive tract; Z90.79 Acquired absence of other genital organ(s); Z80.1 Family history of malignant neoplasm of trachea, bronchus and lung; Z82.49 Family history of ischemic heart disease and other diseases of the circulatory system
CPT/HCPCS: 36415; 71046; 80053; 81001; 83605; 85025; 85610; 85730; 87040; 87086; 93005; 96361; 96374; 99285